=== PATIENT | female | born 2000 | race Caucasian/White ===

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

== ENCOUNTER → 2020-09-06 15:45 | Outpatient (CLI) | payer OTHER, SELFPAY ==
[2020-09-06 17:22] LABS: Vitamin D,25 Hydroxy 12.3 ng/mL
[2020-09-06 17:25] LABS: Hemoglobin A1c 4.8 % (3.8-5.6)
[2020-09-06 17:29] LABS: Estradiol 29.5 pg/mL; Follicle Stimulating Hormone 5.8 mIU/mL; Luteinizing Hormone 13.8 mIU/mL; Prolactin 7.2 ng/mL; T4 Free Direct 1.09 ng/dL (0.76-1.46); Thyroid Stim Hormone (TSH) 1.18 uIU/mL (0.358-3.74)
[2020-09-11 08:34] LABS: Testosterone Free 0.6 pg/mL (0.0-4.2)
[2020-09-15 09:52] LABS: 17-Hydroxyprogesterone 42 ng/dL (.)
== END ==
PROVIDERS: Visit Provider Student in an Organized Health Care Education/Training Program
DX: E28.2 Polycystic ovarian syndrome (principal)
CPT/HCPCS: 36415; 82306; 82627; 82670; 83001; 83002; 83036; 83498; 84146; 84402; 84439; 84443; 82626

== ENCOUNTER → 2022-02-16 | Outpatient (CLI) | payer OTHER, SELFPAY ==
[2022-02-16 17:56] LABS: Estradiol 36.2 pg/mL; Luteinizing Hormone 14.6 mIU/mL; Prolactin 6.9 ng/mL; Thyroid Stim Hormone (TSH) 1.44 uIU/mL (0.358-3.74)
== END | disposition home or self-care (01) ==
LOC: LAB 16:04
PROVIDERS: Visit Provider Student in an Organized Health Care Education/Training Program
DX: E28.2 Polycystic ovarian syndrome (principal)
CPT/HCPCS: 36415; 82670; 83001; 83002; 84146; 84443

== ENCOUNTER → 2022-05-10 | Outpatient (CLI) | payer OTHER, SELFPAY ==
[2022-05-10 14:18] LABS: Absolute Lymphocyte Count 3.09 X10^3/uL (0.83-4.51); Absolute Neutrophil Count 6.7 X10^3/uL (2.0-7.7); Basophil# 0.04 X10^3/uL; Basophil% 0.4 % (0-1); Eosinophil# 0.26 X10^3/uL; Eosinophils% 2.5 % (0-5); Hematocrit 39.9 % (37-47); Hemoglobin 13.4 g/dL (12.0-15.0); Lymphocyte # 3.09 X10^3/ul (0.83-4.51); Lymphocyte % 29.1 % (19-41); Mean Corp Hgb Conc 33.6 g/dL (32-36); Mean Corpuscular Volume 83.5 fL (81-99); Mean Platelet Vol. 9.4 fl (6.2-12.0); Monocyte# 0.45 X10^3/uL; Monocyte% 4.2 % (0-10); NRBC Flagged by Analyzer 0 % (0-5); Neutrophil # 6.69 X10^3/uL (2.7-7.7); Platelet Count 268 K/mm3 (150-450); RBC Distribution Width CV 12.1 % (11.6-14.6); Red Blood Count 4.78 M/mm3 (4.2-5.4); White Blood Count 10.6 K/mm3 (4.4-11.0)
[2022-05-10 15:15] LABS: HIV - WCH Non-Reactive (Nonreactive); Hepatitis B Surface Antigen Non-Reactive (Nonreactive); Hepatitis C Antibody Non-Reactive (Nonreactive); Rubella IgG Reactive (Nonreactive); Syphilis Antibodies Non-reactive
[2022-05-15 00:07] LABS: Chlamydia By Nucleic Acid AMP Negative (Negative); Gonococcus By Nucleic Acid AMP Negative (Negative)
[2022-05-15 16:07] LABS: V-Zoster IgG (Immunity) 154 index (Immune >165)
[2022-05-20 11:09] LABS: HPV APTIMA, High Risk Negative
== END | disposition home or self-care (01) ==
LOC: LABSPEC 14:07
PROVIDERS: Visit Provider Obstetrics & Gynecology
DX: Z34.81 Encounter for supervision of other normal pregnancy, first trimester (principal); Z11.3 Encounter for screening for infections with a predominantly sexual mode of transmission; Z12.4 Encounter for screening for malignant neoplasm of cervix
CPT/HCPCS: 85025; 86703; 86762; 86780; 86787; 86803; 87077; 87086; 87088; 87186; 87340; 87491; 87591; 87624; 88175; G0145

== ENCOUNTER → 2022-06-06 | Outpatient (CLI) | payer OTHER, SELFPAY ==
[2022-06-06 16:12] LABS: Glucose Challenge Gest 1H 50g 104 mg/dL (70-140)
== END | disposition home or self-care (01) ==
LOC: WOBLAB 15:13
PROVIDERS: Visit Provider Student in an Organized Health Care Education/Training Program
DX: Z34.81 Encounter for supervision of other normal pregnancy, first trimester (principal)
CPT/HCPCS: 36415; 82950

== ENCOUNTER 2022-06-26 08:08 | Emergency (ER) | payer OTHER, SELFPAY ==
[2022-06-26 08:09] VITALS: BP 137/94; PULSE 110; RESP 16; TEMP 36.7; O2SAT 98; BMI 42.9
[2022-06-26 10:20] VITALS: BP 125/79; PULSE 91; RESP 16; O2SAT 99
--- NOTE | 2022-06-26 10:20 | EDS_ITS ---
HPI HPI - Female History of Present Illness Chief Complaint: Vag Bld, Preg Informant: patient Pain Pain: Positive for Pelvic Pain Onset: Yesterday Context: Gradual Onset Quality: Positive for Cramping Location: - (throughout pelvis) Current Severity: Gone Maximum Severity: Mild Worsened by: - (nothing) Relieved by: - (nothing in particular) Bleeding Issue: Positive for Vaginal bleeding Onset: Today Context: Sudden Onset Timing: Intermittent (once) Current Severity: Spotting Maximum Severity: Similar to period Associated Symptoms Associated Symptoms: Negative for Dysuria, Frequency, Urgency or Hematuria P: 0 Ab: 0 Narrative Narrative: Patient is about 15 weeks , she had some mild cramping yesterday and then this morning she had a large amount of vaginal bleeding once that seem to then resolved. She does not have any more abdominal pain. No systemic symptom such as lightheadedness, fevers, vomiting. She has had an ultrasound showing an IUP in this earlier. Does not know her blood type. [facility] Medical History (Updated 06/26/22 @ 10:[address] Siva Alcala MD) PCOS (polycystic ovarian syndrome) Medical History no medical history Allergy/AdvReac Type Severity Reaction Status Date / Time No Known Allergies Allergy Verified 06/26/22 08:10 Surgical History no surgical history Social History Smoking Status: Never smoker ROS ROS ED Constitutional Constitutional ED: Denies chills or fever(s) Eyes Eyes: Denies change in vision or diplopia ENT ENT ED: Denies rhinorrhea or sore throat Cardiovascular Cardiovascular: Denies chest pain or palpitations Respiratory/Chest Respiratory/Chest: Denies cough or dyspnea Gastrointestinal Gastrointestinal: Reports abdominal pain; Denies diarrhea, nausea or vomiting Genitourinary Genitourinary ED: Reports as per HPI; Denies dysuria or hematuria Musculoskeletal Musculoskeletal: Denies back pain or neck pain Integumentary Denies abscess or rash Neurologic Neurologic: Denies headache(s), paresthesias or weakness Psychiatric Psychiatric: Denies anxiety or suicidal thoughts EXAM Physical Exam Const Vital Signs: 06/26/22 08:09 Temperature 98.1 F Temperature Source Temporal Pulse Rate 110 H Respiratory Rate 16 Blood Pressure 137/94 H Blood Pressure Mean 108 Pulse Ox 98 Oxygen Delivery Method Room Air Positive well nourished, well developed and obese Constitutional Narrative: Well-appearing General Appearance ED: well developed and NAD Nutritional Appearance: obese HEENT Reports moist mucous membranes normocephalic and atraumatic Eyes PERRL and EOMs intact bilaterally Neck full ROM and supple Resp normal respiratory effort and clear to auscultation bilaterally Cardio regular rate, regular rhythm and no murmurs GI non-tender and non-distended Auscultation: normoactive bowel sounds Palpation: soft Back/Spine no CVA tenderness General Back: other FROM Extremity normal to inspection General Extremety ED: Negative for edema, pulses abnormal or tenderness General Extremity: Negative for edema or pulses abnormal Neuro oriented x3, CN's II-XII intact bilaterally and no sensory deficits noted Sensorium / Orientation: awake and alert Motor Exam: strength 5/5 throughout Skin no rashes or lesions noted and no wounds MDM MDM MDM Narrative Medical decision making narrative: I performed an urgent bedside OB ultrasound. There is a single live intrauterine , the placenta appears to be anterior, and not a previa. heart tones are in the 120-130 range, this was somewhat limited because there is so much movement. I did a type and screen, the patient's blood type is a positive so RhoGAM is not indicated. She is doing well with normal vital signs for the stage of . I do not think any other testing is needed right now, she is reassured, but also we discussed the possibility that this ends in a miscarriage. She is to follow-up with her OB routinely, and we discussed reasons to return including heavy vaginal bleeding to become symptomatic. She is comfortable with that plan answered all questions at the bedside. Lab Data Attestation: I reviewed the patient's lab results. Labs: Laboratory Results - last 24 hr 06/26/22 08:45 Blood Type A POSITIVE Discharge Plan Triage Chief Complaint: Vag Bld, Preg ED Provider: Siva Alcala Dx/Rx/DC Orders Clinical Impression: Threatened in second trimester Instructions: ED Possible Miscarriage ... Primary Care Provider: Care Physician,No Primary Referrals: Hilary Salas DO [Med Staff - Active Staff] - 5-7 Days Care Physician,No Primary [Primary Care Provider] - Disposition Disposition: Home, Self Care
== END 2022-06-26 10:36 | disposition home or self-care (01) ==
PROVIDERS: Emergency Provider Emergency Medicine; Visit Provider Emergency Medicine
DX: O20.0 Threatened abortion (principal); O26.892 Other specified pregnancy related conditions, second trimester; O99.212 Obesity complicating pregnancy, second trimester; O26.852 Spotting complicating pregnancy, second trimester; R10.2 Pelvic and perineal pain; E66.9 Obesity, unspecified; Z3A.15 15 weeks gestation of pregnancy
CPT/HCPCS: 86900; 86901; 99283; A4216

== ENCOUNTER → 2022-07-26 | Outpatient (CLI) | payer OTHER, SELFPAY ==
--- NOTE | 2022-07-26 13:03 | US_ITS ---
EXAM: US SECOND OR THIRD TRIMESTER , TRANSABDOMINAL CLINICAL INDICATION: anatomy TECHNIQUE: Transabdominal obstetrical ultrasound of the maternal pelvis and a second or third trimester with image documentation. This report was created using [employer] report generation technology. COMPARISON: None. FINDINGS: FETUS: There is an intrauterine gestation. HEART RATE: heart rate is 1 45 bpm. PRESENTATION: The fetus in the cephalic position. PLACENTA: Placenta is fundal. No placenta previa. No abruption. AMNIOTIC FLUID: Unremarkable. ANATOMY: The lateral ventricle, cord, cerebellum, cisterna magna, face, diaphragm, stomach, three-vessel cord with cord insertion, kidneys, bladder, spine and extremities were all visualized. Four-chamber heart was not visualized. BIOMETRICS GESTATIONAL AGE: Gestational age 19 weeks 2 days. MALLORIE: MALLORIE 12/18/2022. EFW: Estimated weight is 341 g. BPD: Biparietal diameter is 4.7 cm age 20 weeks 2 days, 86th percentile. HC: Head circumference is 16.8 cm age 19 weeks 3 days, 49th percentile. AC: Abdominal circumference is 15.5 cm age 20 weeks 5 days, 87th percentile. FL: Femur length is 3.1 cm age 19 weeks 4 days, 54th percentile. MATERNAL: UTERUS: Unremarkable. No myometrial mass. CERVIX: Cervix measures 4.3 cm. ADNEXA: Unremarkable. No adnexal masses. FREE FLUID: The largest fluid pocket is 8.4 x 4.7 cm. US/OB Anatomy Scan IMPRESSION: Intrauterine gestation with an average ultrasound age of 19 weeks 5 days and ultrasound estimated due date of 12/15/2022. heart rate is 145 bpm. Electronically Signed: Charles Solano MD at 23:39 EST ,
== END | disposition home or self-care (01) ==
PROVIDERS: Visit Provider Student in an Organized Health Care Education/Training Program
DX: Z34.02 Encounter for supervision of normal first pregnancy, second trimester (principal); Z3A.20 20 weeks gestation of pregnancy
CPT/HCPCS: 76805; 76817

== ENCOUNTER → 2022-08-31 | Outpatient (CLI) | payer OTHER, SELFPAY ==
[2022-08-31 15:01] LABS: Hemoglobin 12.2 g/dL (12.0-15.0); Mean Corpuscular Hgb 28.7 pg (27.0-32.0); Mean Corpuscular Volume 87.1 fL (81-99); Mean Platelet Vol. 10.8 fl (6.2-12.0); Platelet Count 174 K/mm3 (150-450); RBC Distribution Width CV 13.4 % (11.6-14.6); Red Blood Count 4.25 M/mm3 (4.2-5.4); White Blood Count 10.4 K/mm3 (4.4-11.0)
[2022-08-31 15:37] LABS: Glucose Challenge Gest 1H 50g 127 mg/dL (70-140)
[2022-08-31 16:23] LABS: Syphilis Antibodies Non-reactive
== END | disposition home or self-care (01) ==
LOC: LABSPEC 14:12
PROVIDERS: Visit Provider Student in an Organized Health Care Education/Training Program
DX: Z34.83 Encounter for supervision of other normal pregnancy, third trimester (principal)
CPT/HCPCS: 36415; 82950; 85027; 86780

== ENCOUNTER → 2022-11-21 | Outpatient (CLI) | payer OTHER, SELFPAY | END | disposition home or self-care (01) | LOC: LABSPEC 16:03 | PROVIDERS: Visit Provider Student in an Organized Health Care Education/Training Program | DX: Z36.85 Encounter for antenatal screening for Streptococcus B (principal) | CPT/HCPCS: 87081 ==

== ENCOUNTER → 2022-11-27 | Outpatient (CLI) | payer OTHER, SELFPAY ==
[2022-11-27 10:27] LABS: Absolute Neutrophil Count 6.7 X10^3/uL (2.0-7.7); Basophil# 0.04 X10^3/uL; Basophil% 0.4 % (0-1); Eosinophil# 0.22 X10^3/uL; Eosinophils% 2.2 % (0-5); Hematocrit 35.9 % (37-47); Hemoglobin 11.3 g/dL (12.0-15.0); Lymphocyte % 23.9 % (19-41); Mean Corp Hgb Conc 31.5 g/dL (32-36); Mean Corpuscular Hgb 26.2 pg (27.0-32.0); Mean Corpuscular Volume 83.3 fL (81-99); Mean Platelet Vol. 11.4 fl (6.2-12.0); Monocyte# 0.51 X10^3/uL; Monocyte% 5.1 % (0-10); NRBC Flagged by Analyzer 0 % (0-5); Neutrophil # 6.68 X10^3/uL (2.7-7.7); Neutrophil % 66.6 % (47-70); Platelet Count 162 K/mm3 (150-450); RBC Distribution Width CV 14.5 % (11.6-14.6); RBC Distribution Width SD 43.5 fl (35.1-43.9); Red Blood Count 4.31 M/mm3 (4.2-5.4)
== END | disposition home or self-care (01) ==
LOC: WOBLAB 09:58
PROVIDERS: Visit Provider Student in an Organized Health Care Education/Training Program
DX: Z34.83 Encounter for supervision of other normal pregnancy, third trimester (principal)
CPT/HCPCS: 36415; 85025

== ENCOUNTER 2022-12-11 07:00 | Inpatient (IN) | payer OTHER, SELFPAY ==
[2022-12-11] VITALS (37 sets, daily range): BP systolic 117–164; BP diastolic 58–93; PULSE 91–200; TEMP 36.4–37; O2SAT 89–100; BMI 47.2
[2022-12-11] MEDS: Lactated Ringers 1,000 ML 50 ML IV (07:55)
[2022-12-11 08:09] LABS: Absolute Lymphocyte Count 2.45 X10^3/uL (0.83-4.51); Basophil# 0.04 X10^3/uL; Basophil% 0.3 % (0-1); Eosinophil# 0.22 X10^3/uL; Eosinophils% 1.9 % (0-5); Hematocrit 34.3 % (37-47); Lymphocyte # 2.45 X10^3/ul (0.83-4.51); Lymphocyte % 21.2 % (19-41); Mean Corp Hgb Conc 32.1 g/dL (32-36); Mean Corpuscular Hgb 25.9 pg (27.0-32.0); Mean Corpuscular Volume 80.7 fL (81-99); Mean Platelet Vol. 11.3 fl (6.2-12.0); Monocyte# 0.68 X10^3/uL; Monocyte% 5.9 % (0-10); NRBC Flagged by Analyzer 0 % (0-5); Neutrophil # 8.01 X10^3/uL (2.7-7.7); Neutrophil % 69.6 % (47-70); Platelet Count 147 K/mm3 (150-450); RBC Distribution Width CV 14.6 % (11.6-14.6); RBC Distribution Width SD 42.1 fl (35.1-43.9); Red Blood Count 4.25 M/mm3 (4.2-5.4); White Blood Count 11.5 K/mm3 (4.4-11.0)
[2022-12-11] MEDS: Oxytocin 15 Units/NS 250ml 15 UNITS/250 ML IV.SOLN 2 UNITS IV (08:14)
--- NOTE | 2022-12-11 08:32 | PCM.HP.BLA ---
History and Physical Date of Admission: 12/11/22 HPI: 22-year-old G1, P0 at 39/0 weeks, MALLORIE 12/18/2022 by LMP, admitted for induction of labor for class III obesity/elective. Denies regular contractions, leaking fluid, vaginal bleeding. Reports movement. Denies headache or vision changes, chest pain or shortness of breath, nausea or vomiting, diarrhea or constipation, fevers or chills. 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 Class III obesity 2. Polycystic ovarian syndrome Surgical history: Denies Family history: Denies history of blood clots or bleeding disorders, not otherwise noncontributory Allergies: No known drug allergies Social history: Reports former tobacco use. Denies alcohol or drug use Medications: vitamin, metformin Review of system: Negative otherwise stated above Physical exam: Blood pressure 117/72, temperature 97.6 ?F, heart rate 97 General: Patient is resting in bed, no acute distress HEENT: Normocephalic/atraumatic, PERRLA Cardiorespiratory: No increased effort Abdomen: Soft, nontender, gravid, obese Extremities: Minimal edema Neurologic: Cranial nerves II through XII grossly intact, no focal deficits Musculoskeletal: Uses all extremities equally Cervical exam: 3/70/-3 per RN heart rate: 140/mod maeve/+accel/no decel [place]: quiet Assessment/plan: 22-year-old G1, P0 at 39/0 weeks, MALLORIE 12/18/2022 by LMP, admitted for induction of labor for class III obesity/elective. complicated by: class III obesity, letrozole , polycystic ovarian syndrome. ?Admit for induction of labor. Pitocin started. Will AROM when appropriate. ? Class III obesity ?Plans epidural, with will get placed when desired Reviewed plan of care with patient, support person, and bedside RN.
[2022-12-11 08:40] LABS: Syphilis Antibodies Non-reactive
[2022-12-11] MEDS: Lactated Ringers 1,000 ML 200 ML IV ×3 (12:54→23:40)
[2022-12-11] MEDS: LACTATED RINGERS 500 ML 999 ML IV (12:57)
[2022-12-11] MEDS: fentaNYL-bupivacaine (epidural) 100 ML BAG EPIDURAL ×2 (13:55→22:50)
--- NOTE | 2022-12-11 14:58 | PN.OBGYN_ITS ---
Subjective Subjective Patient comfortable with epidural. Objective Data Objective Data Vital Signs: Vital Signs Temp Pulse BP Pulse Ox 97.9 F 105 H 121/62 H 100 12/11/22 11:23 12/11/22 14:43 12/11/22 14:28 12/11/22 14:43 Weight: 124.9 kg Body Mass Index (BMI) 47.2 Intake & Output: Intake and Output for Last 24 Hours 12/09/22 12/10/22 12/11/22 23:59 23:59 23:59 Intake Total 1461.51 / 1461.51 Balance 1461.51 / 1461.51 Lab / Micro Data Attestation: I reviewed the patient's lab results. Result Diagrams: 12/11/22 07:55 Labs: Laboratory Results - last 24 hr 12/11/22 07:55: WBC 11.5 H, RBC 4.25, Hgb 11.0 L, Hct 34.3 L, MCV 80.7 L, MCH 25.9 L, MCHC 32.1, RDW Std Deviation 42.1, RDW Coeff of [place] 14.6, Plt Count 147 L, MPV 11.3, Immature Gran % (Auto) 1.100 H, Neut % (Auto) 69.6, Lymph % (Auto) 21.2, [place] % (Auto) 5.9, Eos % (Auto) 1.9, Baso % (Auto) 0.3, Absolute Neuts (auto) 8.0 H, Absolute Lymphs (auto) 2.45, Nucleated RBC % 0 12/11/22 07:55: Blood Type A POSITIVE, Antibody Screen NEGATIVE 12/11/22 07:55: Syphilis Total Ab Non-reactive Physical Exam Const alert, oriented x3 and no apparent distress HEENT normocephalic Resp normal respiratory effort GI soft to palpation and non-tender Inspection: gravid Narrative: /-3, AROM large amount of clear fluid Extremity Extremity Narrative: minimal pedal edema NST FHR Rate Baby A Baseline: 135 Variability:: Moderate Accelerations:: 15 x 15 Decelerations:: None FHR Category:: Category I Uterine Activity:: q2-6 Assessment & Plan (1) Class 3 obesity: PLAN: G1, P0 at 39/0 weeks, continue induction of labor at term for obesity and elective. AROM clear fluid. Continue titrating Pitocin as tolerated. Patient doing well. Comfortable with epidural.
[2022-12-11] MEDS: Ondansetron 4 MG/2 ML Vial IV (21:23)
[2022-12-11] MEDS: Mag Hydrox/Al Hydrox/Simeth 30 ML UDC PO (22:59)
[2022-12-12] VITALS (31 sets, daily range): BP systolic 106–155; BP diastolic 58–83; PULSE 95–117; RESP 14–18; TEMP 35.9–37.1; O2SAT 94–98
[2022-12-12] MEDS: Oxytocin 15 Units/NS 250ml 15 UNITS/250 ML IV.SOLN 20 UNITS IV (00:18)
[2022-12-12] MEDS: Ondansetron 4 MG/2 ML Vial IV (03:43)
[2022-12-12] MEDS: fentaNYL-bupivacaine (epidural) 100 ML BAG EPIDURAL (04:14)
[2022-12-12] MEDS: Methylergonovine 0.2 MG/ML Ampul IM (04:52)
--- NOTE | 2022-12-12 05:04 | OP.PCM_ITS ---
Maternal Data Information Final MALLORIE: 12/18/22 Vaginal Delivery Operative Information Date of Procedure: 12/12/22 Pre-Operative Diagnosis: Syk intrauterine , class III obesity Post-Operative Diagnosis: Sky intrauterine , class III obesity Surgery / Procedure Performed: Spontaneous Vaginal Delivery Type of Anesthesia: Epidural Estimated Blood Loss: 300cc Findings Description of Procedure: Spontaneous vaginal delivery viable male. No nuchal cord. Beta mom. Cord clamped and cut. Spontaneous delivery of placenta. Right labial laceration repaired in the usual fashion, hemostatic. First-degree laceration repaired in the usual fashion, hemostatic. Baby assessed by bedside nurses and staffing coordinator, placed skin to skin. See their documentation for further details. Infant A Gender: Male (1 minute): 7 (5 minute): 9 Complication Complications: None
[2022-12-12] MEDS: Oxytocin 15 Units/NS 250ml 15 UNITS/250 ML IV.SOLN 83 UNITS IV (05:24)
[2022-12-12] MEDS: Ibuprofen 600 MG Tablet PO (07:30)
[2022-12-12] MEDS: metFORMIN (XR) 500 MG Tablet PO (07:30)
[2022-12-12] MEDS: Senna/Docusate Sodium 1 Tablet PO (08:24)
[2022-12-12] MEDS: Acetaminophen 500 MG Tablet 1000 MG PO ×2 (08:25→17:42)
[2022-12-12] MEDS: Benzocaine/Lanolin/Aloe Vera 1 SPRAY EACH TOPICAL (08:25)
[2022-12-12] MEDS: 0.9% Saline Lock 10 ML Syringe IV (08:26)
[2022-12-13 04:39] VITALS: BP 137/80; PULSE 99; RESP 18
--- NOTE | 2022-12-13 07:20 | PCM.PN.OB ---
Subjective Subjective day 1 status post . Patient is tired and sore, otherwise doing well. Formula feeding. Lochia minimal. Objective Data Objective Data Vital Signs: Vital Signs Temp Pulse Resp BP Pulse Ox O2 Del Method 98.1 F 99 18 137/80 H 97 Room Air 12/12/22 15:01 12/13/22 04:39 12/13/22 04:39 12/13/22 04:39 12/12/22 15:01 12/13/22 04:39 Oxygen Delivery Method Room Air Weight: 124.9 kg Body Mass Index (BMI) 47.2 Intake & Output: Intake and Output for Last 24 Hours 12/11/22 12/12/22 12/13/22 23:59 23:59 23:59 Intake Total 3508.41 / 3508.41 1626.33 / 1626.33 Output Total 600 / 600 1100 / 1100 Balance 2908.41 / 2908.41 526.33 / 526.33 Lab / Micro Data Attestation: I reviewed the patient's lab results. Result Diagrams: 12/11/22 07:55 Physical Exam Const alert, oriented x3 and no apparent distress HEENT normocephalic Head and Scalp: atraumatic Neck full ROM Resp normal respiratory effort Cardio regular rate GI normal to inspection, nondistended, normoactive bowel sounds GI Narrative: Uterus 2 cm below umbilicus Back/Spine normal ROM Extremity normal to inspection Extremity Narrative: Minimal pedal edema Neuro no focal motor deficits and no sensory deficits noted Psych mental status grossly normal and affect normal Assessment & Plan (1) Class 3 obesity: PLAN: day 1 status post . Patient doing well. Per patient there are some current concerns about jaundice and baby, will monitor throughout today. Likely home tomorrow. (2) Vaginal delivery:
--- NOTE | 2022-12-13 07:21 | DCINST_ITS ---
Discharge Instructions Diet Discharge Diet: No restrictions Activity Discharge Activity: Return to Normal Activity and May Shower May resume sexual activity in: 4-6 weeks Weight Bearing Status: Weight bearing as tolerated Lifting Restrictions: No greater than 25 pounds Dressing / Incision Call your doctor if you observe: Fever of 101 or Higher, Change in Color, Inability to urinate, Using more than 1 pad per hour, Shortness of breath, Dizziness, Swelling in the ankles, Chest pain and Calf discomfort Follow Up Care Please Follow Up With: Hilary Salas DO When: 6-week visit Test Results: Test results from this visit will be discussed in further detail at your follow- up appointment, if applicable. Discharge Plan Admission Admit Date/Time: 12/11/22 07:00 Primary Reason for Your Visit: Vaginal delivery Attending Provider: Hilary Salas Primary Care Provider: Care Physician,Josefa Primary Discharge Orders/Prescriptions Prescriptions: No Action metformin 500 mg tablet extended release 24 hr 500 mg PO DAILY Referrals / Follow Up: Care Physician,No Primary [Primary Care Provider] - Disposition Disposition (needs filled in before D/C Order can be placed): Home, Self Care
[2022-12-13] MEDS: metFORMIN (XR) 500 MG Tablet PO (08:24)
[2022-12-13 08:33] VITALS: BP 146/80; PULSE 94; RESP 16; TEMP 36.4
[2022-12-13 10:50] VITALS: BP 140/86; PULSE 103; RESP 16; O2SAT 97
[2022-12-13] MEDS: Acetaminophen 500 MG Tablet 1000 MG PO (10:59)
--- NOTE | 2022-12-13 13:21 | CASEMGMT ---
Social Work Assessment Labor and Delivery Unit Patient Address:[address] [place] [address] Phone number: [phone] Date of Referral:12/12/22 Time of Referral: 0900 Referred By: Hilary Salas Date of Intervention: 12/13/22 Time of Intervention: 1250 Reason for Referral: Mental health History obtained from: medical records and mother of baby (KELLY), Gaby and father of baby (FOB) Jacob. Household composition: Residing at home is KELLY, MARLA and new baby Patient's parent/guardian status: KELLY reports that parents have been together for almost 6 years, in two weeks. FOB is involved, baby is first baby for both parents. Medical History: This is first for KELLY, who came in for induction and delivered baby via vaginal delivery. KELLY received routine care with Earnestine. Baby, Mayela, was born on 12/12/22 weighing 4253 grams and apgars were 7 and 8. Baby has bruising to face from precipitous delivery and skin tag to neck that has been referred to ENT for evaluation. Educational Status: Both parents graduated from high school. No advanced education. KELLY reports that she was on an IEP until her Freshman year in High School, which gave her additional time for assignments and tests/ quizzes. 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. KELLY is off of work until January. AMRLA is employed as a risk management consultant. He is off of work until after December 25. KELLY has private insurance provided through her employer, [employer]. Supplies: KELLY reports that she has obtained all necessary baby items including crib, basinett, clothes, diapers and wipes. KELLY has chosen to feed baby with formula. Sw encouraged MOB to look into services through [facility]. Childcare/Caregiver(s): While KELLY is on maternity leave she will be the primary caregiver to baby, FOB will also assist. When both parents are at work baby will be watched by family members. Transportation: Parents report no barriers to transportation. Programs/Agencies Involved: KELLY reports that she is not connected to any community agencies/ resources. Sw provided KELLY with informationa regading [facility] and explained benefits of getting connected to resource. MOB agreed to look over brochure and let sw know if she is receptive to linkage. Children Services/Legal Issues: No history, no current concerns to warrant involvement. Behavioral Health Issues: Mental Health History: MOB disclosed that she has history of anxiety and depression. MOB states that her initial symptoms started when her parents were getting a divorce. MOB denies medications or involvement with mental health supports. [place] Depression Screen was completed. MOB scored 9. Sw provided MOB with list of counseling agencies in [facility]. Sw explained benefits of getting connected to menteal health supports post to help assist with any baby blues or post depression symptoms that MOB may be experiencing. MOB stated she is going to look over list and will let sw know if she would like assistance with getting appointment scheduled prior to her discharge. MOB denies SI or history of SI. Substance Use History: MOB denies, urine screen at delivery was negative. MOB states that when she learned that she was she stopped vaping. Sw educated MOB on not vaping in the home and if she vapes change clothes prior to holding baby to eliminate and second hand smoke. MOB expressed understanding and agreement. Family History: MOB denies family history of substance use. Drug Screens: Drug screen negative at time of delivery. Family/Social Stressors:Parents deny any stressors and concerns at this time. Support Systems:MOB reports that her family is extremely supportive and involved. MOB states that FOB family is not very supportive but did not want to elaborate at this time. Depression/Shaken Baby/Safe Sleeping: Sw disucssed signs and symptoms of baby blues and post depression with MOB. MOB expressed understanding and is considering getting connected to community mental health supports. Sw educated MOB and MARLA on shaken baby- both parents expressed understanding. Parents were familiar with ABC's of safe sleep and recognized importance of only using fitted sheet in safe sleep space and what baby is wearing. ASSESSMENT: Parents were engaged during assessment. Parents answered questions and elaborated with answers. Parents were both engaged and interactive with baby. MOB would benefit from linkage to community mental health supports to help her during post . PLAN: Sw to follow up with parents tomorrow prior to discharge to discuss willingness to get connected to [facility] and/ or counseling services to promote healthy mental post health. Zach Flores, VEHICLE UPHOLSTERER, BUILDING MAINTENANCE CUSTODIAN
[2022-12-13 13:47] VITALS: BP 125/85; PULSE 99; RESP 16; TEMP 36.6; O2SAT 98
[2022-12-13 20:50] VITALS: BP 124/85; PULSE 105; RESP 16; TEMP 37; O2SAT 98
--- NOTE | 2022-12-13 23:29 | NURSING ---
Report given to Mary Beth VILLARREAL, taking over care at this time.
[2022-12-14 01:00] VITALS: BP 122/79; PULSE 82; RESP 16; TEMP 36.6; O2SAT 98
--- NOTE | 2022-12-14 07:26 | PCM.DC.BLA ---
Discharge Summary Date of Admission: 12/11/22 Date of Discharge: 12/14/22 Summary: Patient arrived on 12/11/2022 for induction of labor at term. Subsequently delivered vaginally on 12/12/2022. Baby with jaundice. Otherwise routine recovery and discharged home on 12/14/2022 Meaningful Use Info Meaningful Use Diagnoses (Choose all that apply): None applicable Discharge Plan Admission Admit Date/Time: 12/11/22 07:00 Primary Reason for Your Visit: Induction of labor Attending Provider: Hilary Salas Primary Care Provider: Care Physician,Josefa Primary Instructions Additional Instructions / Restrictions: Regular diet. Weightbearing as tolerated. No intercourse for 6 to 8 weeks. Call if fevers, chills, chest pain, shortness of breath. Follow-up 4 to 6 weeks Discharge Orders/Prescriptions Prescriptions: No Action metformin 500 mg tablet extended release 24 hr 500 mg PO DAILY Referrals / Follow Up: Care Physician,No Primary [Primary Care Provider] - Disposition Disposition (needs filled in before D/C Order can be placed): Home, Self Care
--- NOTE | 2022-12-14 07:27 | PCM.PN.OB ---
Subjective Subjective No overnight complaints Objective Data Objective Data Vital Signs: Vital Signs Temp Pulse Resp BP Pulse Ox O2 Del Method 97.9 F 82 16 122/79 H 98 Room Air 12/14/22 01:00 12/14/22 01:00 12/14/22 01:00 12/14/22 01:00 12/14/22 01:00 12/14/22 01:00 Oxygen Delivery Method Room Air Weight: 275 lb 5.718 oz Body Mass Index (BMI) 47.2 Intake & Output: Intake and Output for Last 24 Hours 12/12/22 12/13/22 12/14/22 23:59 23:59 23:59 Intake Total 1626.33 / 1626.33 Output Total 1100 / 1100 Balance 526.33 / 526.33 Lab / Micro Data Result Diagrams: 12/11/22 07:55 Physical Exam Const alert, oriented x3, no apparent distress, average body habitus, healthy appearing and well nourished HEENT normocephalic and moist oral mucous membranes Eyes PERRL Neck full ROM Resp normal respiratory effort, no retractions and no use of accessory muscles GI GI Narrative: Soft, nontender, uterus firm and below umbilicus Extremity normal to inspection and full ROM Neuro moves all extremities and no focal motor deficits Psych mental status grossly normal, affect normal, speech normal and activity/motor behavior normal Assessment & Plan (1) Vaginal delivery: PLAN: day 2. Formula feeding. Pain well controlled. Okay to discharge home today if okay with chief specialist leed
[2022-12-14 08:00] VITALS: BP 124/68; PULSE 95; RESP 18; TEMP 36.8; O2SAT 97
[2022-12-14] MEDS: Hydrocortisone 2.5% Crm 1 APPLIC TOPICAL (08:48)
--- NOTE | 2022-12-14 08:52 | CASEMGMT ---
Social Work Labor and Delivery Unit ? Summary:?Mother of baby (MOB) Gaby and baby medically ready for discharge today. Sw met with MOB and father of baby (FOB) at bedside. Sw following up with MOB regarding resources that were provided to her yesterday including counseling agencies and [facility]. MOB states that she would like to get home and get settled before getting scheduled with counseing services. Sw expressed understanding and encouraged MOB to still follow through with doing so when she is ready. MOB stated that [facility] services are connected to her employer ([employer] ) and she plans on following up with them to get baby connected. Sw again encouraged MOB to follow through in doing so and reminded MOB of benefit of [facility] involvement. Parents state that they are eager to be discharged and looking forward to taking baby home today. Sw encouraged parents to reach out to sw for any last minute questions or concerns, parents expressed understanding. ? Assessment:??MOB and baby being discharged today. MOB was provided information regarding mental health services that she would benefit from. MOB also encouraged to get baby connected to [facility]. ? Intervention:?Tali provided support, resources and encouragement. ? Plan:??No further sw needs identified at this time. Zach Flores, LINING PRINTER, SWEATBAND MAKER
== END 2022-12-14 10:45 | disposition home or self-care (01) | DRG 807 ==
PROVIDERS: Admitting Provider Student in an Organized Health Care Education/Training Program; Referring Provider Student in an Organized Health Care Education/Training Program; Visit Provider Student in an Organized Health Care Education/Training Program
DX: O99.214 Obesity complicating childbirth (principal); Z37.0 Single live birth; E28.2 Polycystic ovarian syndrome; E66.01 Morbid (severe) obesity due to excess calories; O70.0 First degree perineal laceration during delivery; Z3A.39 39 weeks gestation of pregnancy; O99.284 Endocrine, nutritional and metabolic diseases complicating childbirth
CPT/HCPCS: 59025; 59050; 85025; 86780; 86850; 86900; 86901; 99221; J7120; A4216; G0378; J2405

== ENCOUNTER 2023-01-19 14:30 | Emergency (ER) | payer OTHER, SELFPAY ==
[2023-01-19 14:30] VITALS: BP 146/90; PULSE 94; RESP 16; TEMP 36.6; O2SAT 100; BMI 43.2
--- NOTE | 2023-01-19 14:43 | ED.VIS.FEGU ---
HPI HPI - Female History of Present Illness Chief Complaint: Vag Bleeding Narrative Narrative: Patient is a 22-year-old female who is presenting to the ER with vaginal bleeding that started , and has worsened yesterday and today. Patient delivered on December 12. Patient is a . Patient started having some spotting on , patient was soaking a pad once every 6 hours yesterday, this morning she was soaking a pad once every 3 hours, and then this evening has been soaking a pad every hour. Patient is not lightheaded, dizzy, not short of breath. Patient did call the on-call [employer] physician Dr. Salas. Dr. Hilary Salas is to be delivered patient on December 12 with no complications. Patient did not hear from Dr. Salas, so she came to the ER for evaluation. When patient was sitting in the ER bed 9, Dr. Salas did call patient back and had a 15-minute discussion on this is normal bleeding after . Continue increased fluids, and follow-up with scheduled appointment on Saturday with his Hilary Salas the OB doc who delivered her. Patient has no abdominal pain, nausea or vomiting. Patient has no other acute complaints. at bedside. Patient says that if she had talked to Dr. Salas prior to arriving to the ER, she would not have checked into the ER. Patient says that they paged him several times with no return phone call so they decided come to the ER to be safe. [facility] Medical History (Updated 01/19/23 @ 16:[address] Ángel Bansal DO) PCOS (polycystic ovarian syndrome) Vaginal delivery Home Medications metformin 500 mg tablet,extended release 24 hr 500 mg PO DAILY PCOS 12/11/22 [History Last Taken 12/11/22 06:00] Allergy/AdvReac Type Severity Reaction Status Date / Time No Known Allergies Allergy Verified 01/19/23 14:33 Social History Smoking Status: Former smoker ROS ROS ED ROS Narrative REVIEW OF SYSTEMS: Unless otherwise stated in this report the patient's positive and negative responses for review of systems for constitutional, eyes, ENT, cardiovascular, respiratory, gastrointestinal, neurological, , musculoskeletal, and integument systems and related systems to the presenting problem are either stated in the history of present illness or were not pertinent or were negative for the symptoms and/or complaints related to the presenting medical problem. EXAM Physical Exam Narrative Exam Narrative: Vital signs reviewed and patient is not hypoxic. General: The patient appears well and in no apparent distress. Patient is resting comfortably on cart. Not toxic, lethargic, or listless. Skin: Warm, dry, no pallor noted. There is no rash noted. Head: Normocephalic, atraumatic Eye: Normal conjunctiva, no drainage, EOMI. PERRL. Patient is not pale. Ears, Nose, Mouth, and Throat: oral mucosa is moist. Nares patent. Mouth without vesicles. Cardiovascular: Regular Rate and Rhythm, no murmurs, gallops, or rubs Respiratory: Patient is in no distress, no accessory muscle use, lungs are clear to auscultation, no wheezing, rales or rhonchi Back: non-tender, no CVA tenderness bilaterally to percussion. NO CTLS midline or paraspinal tenderness to palpation. GI: Soft, no tenderness to palpation, no masses appreciated. No rebound, guarding, or rigidity noted. No suprapubic tenderness to palpation, no bilateral inguinal tenderness to palpation. Patient has no significant active bleeding at this time vaginally. Musculoskeletal: The patient has full range of motion of all extremities and joints with no difficulty. Patient has no motor, no sensory deficits. Neurological: A&O x4, normal speech, no focal neurological deficits. Psychiatric: Cooperative Const Vital Signs: 01/19/23 14:30 01/19/23 14:52 01/19/23 16:53 Temperature 98 F Temperature Source Temporal Pulse Rate 94 87 Pulse Rate [Lying] 84 Pulse Rate [Sitting (for 1 minute prior to obtaining)] 103 H Pulse Rate [Standing (for 1 minute prior to obtaining)] 95 Respiratory Rate 16 16 Blood Pressure 146/90 H 132/89 H Blood Pressure [Lying] 124/82 H Blood Pressure [Sitting (for 1 minute prior to obtaining)] 123/83 H Blood Pressure [Standing (for 1 minute prior to obtaining)] 122/86 H Blood Pressure Mean 108 Blood Pressure Mean [Lying] 96 Blood Pressure Mean [Sitting (for 1 minute prior to obtaining)] 96 Blood Pressure Mean [Standing (for 1 minute prior to obtaining)] 98 Pulse Ox 100 99 Oxygen Delivery Method Room Air MDM MDM MDM Narrative Medical decision making narrative: I spoke to Dr. Salas on the phone. He told me that he had a 15-minute conversation with the patient to be evaluated in room 9. Patient was given 1 L of IV fluid. Patient lab work shows no acute findings. Patient will continue to increase fluids at home. Patient's H&H showed no acute findings. Patient will follow-up on Saturday with appoint with Dr. Hilary Salas as scheduled. Lab Data Attestation: I reviewed the patient's lab results. Labs: Laboratory Results - last 24 hr 01/19/23 14:51 WBC 8.4 RBC 4.66 Hgb 11.7 L Hct 37.1 MCV 79.6 L MCH 25.1 L MCHC 31.5 L RDW Std Deviation 41.6 RDW Coeff of Spencer 14.5 Plt Count 230 MPV 9.8 Immature Gran % (Auto) 0.500 Neut % (Auto) 55.1 Lymph % (Auto) 37.7 [place] % (Auto) 4.1 Eos % (Auto) 2.2 Baso % (Auto) 0.4 Absolute Neuts (auto) 4.6 Absolute Lymphs (auto) 3.15 Nucleated RBC % 0 Discharge Plan Triage Chief Complaint: Vag Bleeding ED Provider: Ángel Bansal Dx/Rx/DC Orders Clinical Impression: Vaginal bleeding Instructions: ED Dysfunctional Uterine Bleeding Prescriptions: No Action metformin 500 mg tablet extended release 24 hr 500 mg PO DAILY Primary Care Provider: Care Physician,No Primary Referrals: Hilary Salas DO [Med Staff - Active Staff] - Care Physician,No Primary [Primary Care Provider] - Activity Restrictions/Additional Instructions: Increase fluids, follow up with your OB at your apt this week. Disposition Disposition: Home, Self Care Discharge Date/Time: 01/19/23 16:57
[2023-01-19 14:52] VITALS: BP 122/86; BP 123/83; BP 124/82; PULSE 103; PULSE 84; PULSE 95
[2023-01-19] MEDS: 0.9% Normal Saline 1,000 ML 999 ML IV (14:56)
[2023-01-19 14:59] LABS: Absolute Lymphocyte Count 3.15 X10^3/uL (0.83-4.51); Absolute Neutrophil Count 4.6 X10^3/uL (2.0-7.7); Basophil# 0.03 X10^3/uL; Basophil% 0.4 % (0-1); Eosinophil# 0.18 X10^3/uL; Eosinophils% 2.2 % (0-5); Hematocrit 37.1 % (37-47); Hemoglobin 11.7 g/dL (12.0-15.0); Lymphocyte # 3.15 X10^3/ul (0.83-4.51); Lymphocyte % 37.7 % (19-41); Mean Corp Hgb Conc 31.5 g/dL (32-36); Mean Corpuscular Hgb 25.1 pg (27.0-32.0); Mean Corpuscular Volume 79.6 fL (81-99); Mean Platelet Vol. 9.8 fl (6.2-12.0); Monocyte# 0.34 X10^3/uL; Monocyte% 4.1 % (0-10); NRBC Flagged by Analyzer 0 % (0-5); Neutrophil # 4.61 X10^3/uL (2.7-7.7); Neutrophil % 55.1 % (47-70); Platelet Count 230 K/mm3 (150-450); RBC Distribution Width CV 14.5 % (11.6-14.6); RBC Distribution Width SD 41.6 fl (35.1-43.9); Red Blood Count 4.66 M/mm3 (4.2-5.4); White Blood Count 8.4 K/mm3 (4.4-11.0)
[2023-01-19 16:53] VITALS: BP 132/89; PULSE 87; RESP 16; O2SAT 99
== END 2023-01-19 16:57 | disposition home or self-care (01) ==
PROVIDERS: Emergency Provider Emergency Medicine; Visit Provider Emergency Medicine
DX: N93.9 Abnormal uterine and vaginal bleeding, unspecified (principal); Z87.891 Personal history of nicotine dependence
CPT/HCPCS: 85025; 96360; 96361; 99283; J7030; A4216

== ENCOUNTER → 2023-06-28 | Outpatient (CLI) | payer OTHER, SELFPAY ==
--- OUTSIDE RECORDS SUMMARY | 2023-06-28 16:41 | XMS RPT_ITS | CCD ---
Author Name Unknown Address [address] [place] [id number] Organization [facility] Care Team Providers Care Coil Shaper Name Role Phone Clifton, Sheree D Unavailable Unavailable Clifton, Sheree D Unavailable Unavailable Papito Anna Unavailable Unavailable Jeff, Danita Unavailable Unavailable JeffSantosin Unavailable Unavailable Yvan Annaen L Unavailable Unavailable Rings, Sony Unavailable Unavailable Rings, Sony Unavailable Unavailable [facility], [facility] Unavailable Unavailable NO, PHYSICIAN Primary Care Unavailable SERGE ELAINE Attending Unavailable Unavailable Primary Care Provider Unavailabl e Problems Problem Classification Problem Date Documented Da te Episodic/Chronic Lymphadenitis (2 sources) Nonspecific lymphadenitis, unspecified; Translations: [Nonspecific lymphadenitis, unspecified] Onset: 02-12-2023 Episodic Other upper respiratory infections (2 sources) Acute pharyngitis, unspecified; Translations: [Acute pharyngitis, unspecified] Onset: 02-12-2023 Episodic Superficial injury; contusion (1 source) Abrasion of cheek; Translations: [Abrasion of other part of head, initial encounter] 04-02-2023 Episodic Results Test Name Value Interpretation Reference Range Facil ity Vital Signs Date Time Vital Sign Value Performing Clinician Facility 04-02-2023 13:06-0400 Body height 162.6 cm Ras Lowtrevor NATURAL RESOURCE OFFICER-AGRONOMY PROFESSOR Work Phone: [facility] 04-02-2023 13:06-0400 Body mass index (BMI) [Ratio] 43.77 kg/m2 Ras Urrutiarufus [employer] Work Phone: [facility] 04-02-2023 13:06-0400 Body temperature 97.39 [degF] Ras Kelseytrevor [employer] Work Phone: [facility] 04-02-2023 13:06-0400 Body weight 115.67 kg Ras Orantes NATURAL RESOURCE OFFICER-AGRONOMY PROFESSOR Work Phone: [facility] 04-02-2023 13:06-0400 Diastolic blood pressure 88 mm[Hg] Rsa Orantes NATURAL RESOURCE OFFICER-AGRONOMY PROFESSOR Work Phone: [facility] 04-02-2023 13:06-0400 Heart rate 84 /min Ras Orantes NATURAL RESOURCE OFFICER-AGRONOMY PROFESSOR Work Phone: [facility] 04-02-2023 13:06-0400 Respiratory rate 16 /min Ras Renanrufus NATURAL RESOURCE OFFICER-AGRONOMY PROFESSOR Work Phone: [facility] 04-02-2023 13:06-0400 SaO2% (BldA) [Mass fraction] 100 % Ras Renanrufus NATURAL RESOURCE OFFICER-AGRONOMY PROFESSOR Work Phone: [facility] 04-02-2023 13:06-0400 Systolic blood pressure 135 mm[Hg] Ras Orantes NATURAL RESOURCE OFFICER-AGRONOMY PROFESSOR Work Phone: [facility] Encounters Encounter Date Encounter Type Care Provider Facility Start: 04-02-2023 End: 04-02-2023 Office outpatient visit 15 minutes Ras Orantes NATURAL RESOURCE OFFICER-AGRONOMY PROFESSOR Work Phone: [facility] Plan of Treatment Date Care Activity Detail Author Start: 10-15-2049 Zoster Vaccines (1 of 2) Zoste r Vaccines (1 of 2) [facility] Start: 04-02-2033 DTaP/Tdap/Td Vaccine s (8 - Td or Tdap) DTaP/Tdap/Td Vaccines (8 - Td or Tdap) [facility] Start: 02-22-2023 Influenza vaccination Influenza Vacc ine (#1) [facility] Start: 10-15-2020 Screening for malign ant neoplasm of cervix [facility] Start: 10-15-2017 Hepatitis C screening Hepatitis C [facility] Start: 10-15-2010 HPV Vaccines (1 - 2- dose series) HPV Vaccines (1 - 2-dose series) [facility] Start: 04-16-2000 COVID-19 Vaccine (#1) COVID-19 Vacci ne (#1) [facility] Start: 1999 HIV screening HIV Screening [facility] Start: 1999 Lipid panel Lipid Panel [facility] Start: 1999 Yearly Adult Physical Yearly Adult P hysical [facility] Immunizations Immunization Date Immunization Notes Care Provider Fa cility 04-02-2023 tetanus toxoid, redu susan diphtheria toxoid, and acellular pertussis vaccine, adsorbed Ras RenanJooobz!trevor NATURAL RESOURCE OFFICER[employer] Work Phone: [facility] Work Phone: 04-21-2004 influenza virus vaccine, unspecified formulation Ras UrrutiaJooobz!trevor NATURAL RESOURCE OFFICER-AGRONOMY PROFESSOR Work Phone: [facility] Work Phone: Payers Date Payer Category Payer Unknown [id number] 2017 Unknown 1999 Unknown [id number] [id number] 1999 Unknown [id number] 1999 Unknown [id number] [id number] 1972 Unknown [id number] [id number] 1972 Unknown [id number] [id number] Unknown [id number] Social History Date Type Detail Facility Start: 04-02-2023 Tobacco smoking stat us RIIS Never smoked tobacco [facility] Work Phone: Start: 04-02-2023 Tobacco use and exposure Smokeless tobacco non-user [facility] Work Phone: Start: 04-02-2023 Alcohol intake Lifetime non-d alma (finding) [facility] Work Phone: Start: 1999 Sex Assigned At Not on file [facility] Work Phone: Gender identity Not on file [facility] Work Phone: Start: 03-23-2023 End: 04-02-2023 Exposure to SARS-CoV-2 (event) Yes [facility] History of Present illness Narrative 04-02-2023 CLAY Morales - 04/02/2023 12:55 PM EDT Note Date & Type Note Facility 04-02-2023 History of Present illness Narrative 22 y.o. female presents for evaluation of abrasion to left cheek that occurred just prior to arrival when patient was scratched by a student at work. States she is not up to date on tetanus. Denies any other symptoms. Vitals: 04/02/23 1306 BP: 135/88 Pulse: 84 Resp: 16 Temp: 36.3 C (97.4 F) SpO2: 100% No Known Allergies Medication Documentation Review Audit Reviewed by CLAY Morales (Nurse Practitioner) on 04/02/23 at 1315 Medication Order Taking? Sig Documenting Provider Last Dose Status No Medications to Display History reviewed. No pertinent past medical history. History reviewed. No pertinent surgical history. ROS See HPI Physical Exam Vitals and nursing note reviewed. Constitutional: Appearance: Normal appearance. Skin: General: Skin is warm and dry. Capillary Refill: Capillary refill takes less than 2 seconds. Findings: Erythema (left cheek abrasion) present. Neurological: General: No focal deficit present. Mental Status: She is alert and oriented to person, place, and time. Psychiatric: Mood and Affect: Mood normal. Behavior: Behavior normal. Assessment/Plan/MDM Gaby was seen today for abrasion. Diagnoses and all orders for this visit: Abrasion of cheek, initial encounter (Primary) Other orders - diphth,pertus(acell),tetanus (BoostRIX) 2.5-8-5 Lf-mcg-Lf/0.5mL vaccine - [employer] Override Pull Encouraged patient to wash abrasion with antibacterial soap and water. Patient's clinical presentation is otherwise unremarkable at this time. Patient is discharged with instructions to follow-up with primary care or seek emergency medical attention for worsening symptoms or any new concerns. Ras Orantes CNP [facility] [phone] documented in this encounter [facility] Work Phone: Evaluation note Note Date & Type Note Facility documented in this encounter [facility] Work Phone: Summary Purpose Family History No Family History Records FoundNo Family History Records FoundNo Family History Records FoundNo Family History Records Found Advance Directives No Advanced Directives Records FoundNo Advanced Directives Records FoundNo Advanced Directives Records FoundNo Advanced Directives Records Found Additional Source Comments INFORMATION SOURCE (unrecogn ized section and content) DATE CREATED AUTHOR AUTHOR'S ORGANIZ ATION 09/16/2018 [facility] DATE CREATED AUTHOR AUTHOR'S ORGANIZ ATION 04/29/2020 [facility] DATE CREATED AUTHOR AUTHOR'S ORGANIZ ATION 03/06/2023 [facility] Reason for Visit (unrecogniz ed section and content) FOR RECORDS PERTAINING TO PATIENTS WHO ARE OR HAVE BEEN ENROLLED IN A CHEMICAL DEPENDENCY/SUBSTANCEABUSE PROGRAM, SOME INFORMATION MAY BE OMITTED. This clinical summary was aggregated from multiple sources. Caution should be exercised in using it in the provision of clinical care. This summary normalizes information from multiple sources, and as a consequence, information in this document may materially change the coding, format and clinical context of patient data. In addition, data may be omitted in some cases. CLINICAL DECISIONS SHOULD BE BASED ON THE PRIMARY CLINICAL RECORDS. [facility] [employer] [facility]. provides no warranty or guarantee of the accuracy or completeness of information in this document.
[2023-06-28 17:12] LABS: Absolute Lymphocyte Count 2.58 X10^3/uL (0.83-4.51); Absolute Neutrophil Count 5.7 X10^3/uL (2.0-7.7); Basophil# 0.04 X10^3/uL; Basophil% 0.4 % (0-1); Eosinophil# 0.13 X10^3/uL; Eosinophils% 1.5 % (0-5); Hematocrit 36.7 % (37-47); Hemoglobin 11.8 g/dL (12.0-15.0); Lymphocyte # 2.58 X10^3/ul (0.83-4.51); Lymphocyte % 28.9 % (19-41); Mean Corp Hgb Conc 32.2 g/dL (32-36); Mean Corpuscular Hgb 24.9 pg (27.0-32.0); Mean Corpuscular Volume 77.6 fL (81-99); Mean Platelet Vol. 9.9 fl (6.2-12.0); Monocyte# 0.45 X10^3/uL; NRBC Flagged by Analyzer 0 % (0-5); Neutrophil % 63.8 % (47-70); Platelet Count 241 K/mm3 (150-450); RBC Distribution Width CV 14.8 % (11.6-14.6); RBC Distribution Width SD 41.4 fl (35.1-43.9); Red Blood Count 4.73 M/mm3 (4.2-5.4); White Blood Count 8.9 K/mm3 (4.4-11.0)
[2023-06-28 17:28] LABS: Hemoglobin A1c 4.8 % (3.8-5.6)
[2023-06-28 18:24] LABS: HIV - WCH Non-Reactive (Nonreactive); Hepatitis B Surface Antigen Non-Reactive (Nonreactive); Hepatitis C Antibody Non-Reactive (Nonreactive); Rubella IgG Reactive (Nonreactive); Syphilis Antibodies Non-reactive
[2023-07-01 22:07] LABS: Chlamydia By Nucleic Acid AMP Negative (Negative); Gonococcus By Nucleic Acid AMP Negative (Negative)
== END | disposition home or self-care (01) ==
PROVIDERS: Referring Provider Advanced Practice Midwife; Visit Provider Advanced Practice Midwife
DX: Z34.90 Encounter for supervision of normal pregnancy, unspecified, unspecified trimester (principal); Z3A.00 Weeks of gestation of pregnancy not specified
CPT/HCPCS: 36415; 83036; 85025; 86703; 86762; 86780; 86803; 86850; 86900; 86901; 87086; 87088; 87340; 87491; 87591

== ENCOUNTER → 2023-09-24 | Outpatient (CLI) | payer OTHER, SELFPAY ==
[2023-09-24 11:07] LABS: Absolute Lymphocyte Count 2.45 X10^3/uL (0.83-4.51); Absolute Neutrophil Count 6.1 X10^3/uL (2.0-7.7); Basophil# 0.06 X10^3/uL; Basophil% 0.6 % (0-1); Eosinophil# 0.24 X10^3/uL; Eosinophils% 2.5 % (0-5); Hematocrit 34.8 % (37-47); Hemoglobin 11.2 g/dL (12.0-15.0); Lymphocyte # 2.45 X10^3/ul (0.83-4.51); Mean Corp Hgb Conc 32.2 g/dL (32-36); Mean Corpuscular Hgb 25.7 pg (27.0-32.0); Mean Corpuscular Volume 79.8 fL (81-99); Mean Platelet Vol. 10.5 fl (6.2-12.0); Monocyte# 0.45 X10^3/uL; Monocyte% 4.8 % (0-10); NRBC Flagged by Analyzer 0 % (0-5); Neutrophil % 64.6 % (47-70); Platelet Count 161 K/mm3 (150-450); RBC Distribution Width CV 15.2 % (11.6-14.6); RBC Distribution Width SD 43.8 fl (35.1-43.9); Red Blood Count 4.36 M/mm3 (4.2-5.4); White Blood Count 9.4 K/mm3 (4.4-11.0)
[2023-09-24 11:29] LABS: ALB/GLOB Ratio 0.7 RATIO (0.9-2.4); AST(SGOT) 13 U/L (15-37); Alanine Aminotransfer ALT/SGPT 14 U/L (13-56); Albumin, Serum 2.8 g/dL (3.2-5.0); Alkaline Phosphatase 50 U/L (45-117); Anion Gap 7 (5-15); BUN 5 mg/dL (7-18); BUN/Creat Ratio 8.8 RATIO (10-20); Calcium,Total 9.2 mg/dL (8.5-10.1); Chloride 109 mmol/L (98-107); Creatinine, Serum 0.57 mg/dL (0.55-1.02); EST Glomerular Filtration Rate 139 mL/min (>60); Est Glom Filt Rate - Afr Amer 168 mL/min (>60); Globulin 3.8 g/dL (2.2-4.2); Glucose 103 mg/dL (74-106); Potassium 3.7 mmol/L (3.5-5.1); Protein, Total 6.6 g/dL (6.4-8.2); Sodium Level 139 mmol/L (136-145)
[2023-09-24 15:11] LABS: Protein, Urine (Random) 7.2 mg/dL (<11.9); Protein:Creat Ratio 56 mg/g CRE (0-200)
== END | disposition home or self-care (01) ==
PROVIDERS: Obstetrics & Gynecology; Referring Provider Nurse Practitioner Women's Health; Visit Provider Nurse Practitioner Women's Health
DX: O16.9 Unspecified maternal hypertension, unspecified trimester (principal); Z3A.00 Weeks of gestation of pregnancy not specified
CPT/HCPCS: 36415; 80053; 82570; 84156; 85025

== ENCOUNTER → 2023-10-24 | Outpatient (CLI) | payer OTHER, SELFPAY ==
[2023-10-24 10:14] LABS: Absolute Lymphocyte Count 2.06 X10^3/uL (0.83-4.51); Absolute Neutrophil Count 5.3 X10^3/uL (2.0-7.7); Basophil# 0.04 X10^3/uL; Basophil% 0.5 % (0-1); Eosinophil# 0.17 X10^3/uL; Eosinophils% 2.1 % (0-5); Hematocrit 31.5 % (37-47); Hemoglobin 9.9 g/dL (12.0-15.0); Lymphocyte # 2.06 X10^3/ul (0.83-4.51); Lymphocyte % 25.2 % (19-41); Mean Corp Hgb Conc 31.4 g/dL (32-36); Mean Corpuscular Hgb 25.1 pg (27.0-32.0); Mean Corpuscular Volume 79.9 fL (81-99); Mean Platelet Vol. 10.2 fl (6.2-12.0); Monocyte# 0.48 X10^3/uL; Monocyte% 5.9 % (0-10); NRBC Flagged by Analyzer 0 % (0-5); Neutrophil # 5.33 X10^3/uL (2.7-7.7); Platelet Count 141 K/mm3 (150-450); RBC Distribution Width CV 14.9 % (11.6-14.6); RBC Distribution Width SD 43.2 fl (35.1-43.9); Red Blood Count 3.94 M/mm3 (4.2-5.4); White Blood Count 8.2 K/mm3 (4.4-11.0)
[2023-10-24 10:34] LABS: Glucose Challenge Gest 1H 50g 90 mg/dL (70-140)
[2023-10-24 11:08] LABS: HIV - WCH Non-Reactive (Nonreactive); Syphilis Antibodies Non-reactive
== END | disposition home or self-care (01) ==
LOC: PAVLAB 09:55
PROVIDERS: Referring Provider Nurse Practitioner Women's Health; Visit Provider Nurse Practitioner Women's Health
DX: Z34.90 Encounter for supervision of normal pregnancy, unspecified, unspecified trimester (principal)
CPT/HCPCS: 36415; 82950; 85025; 86703; 86780

== ENCOUNTER → 2023-12-04 | Outpatient (CLI) | payer OTHER, SELFPAY ==
[2023-12-04 11:00] LABS: Absolute Lymphocyte Count 2.19 X10^3/uL (0.83-4.51); Absolute Neutrophil Count 5.9 X10^3/uL (2.0-7.7); Basophil# 0.05 X10^3/uL; Basophil% 0.6 % (0-1); Eosinophil# 0.19 X10^3/uL; Eosinophils% 2.1 % (0-5); Hemoglobin 11.5 g/dL (12.0-15.0); Lymphocyte # 2.19 X10^3/ul (0.83-4.51); Lymphocyte % 24.7 % (19-41); Mean Corp Hgb Conc 31.9 g/dL (32-36); Mean Corpuscular Volume 81.4 fL (81-99); Mean Platelet Vol. 10.3 fl (6.2-12.0); Monocyte# 0.43 X10^3/uL; Monocyte% 4.8 % (0-10); NRBC Flagged by Analyzer 0 % (0-5); Neutrophil # 5.94 X10^3/uL (2.7-7.7); Platelet Count 141 K/mm3 (150-450); RBC Distribution Width CV 17.9 % (11.6-14.6); RBC Distribution Width SD 52.6 fl (35.1-43.9); Red Blood Count 4.42 M/mm3 (4.2-5.4); White Blood Count 8.9 K/mm3 (4.4-11.0)
[2023-12-04 11:26] LABS: Ferritin 10 ng/mL (8-252); Iron 50 ug/dL (50-170); Iron Binding Capacity,Total 518 ug/dL (250-450)
[2023-12-04 11:29] LABS: Vitamin B12 229 pg/mL (211-911)
== END | disposition home or self-care (01) ==
LOC: PAVLAB 09:47
PROVIDERS: Referring Provider Obstetrics & Gynecology; Visit Provider Obstetrics & Gynecology
DX: O99.019 Anemia complicating pregnancy, unspecified trimester (principal); D69.6 Thrombocytopenia, unspecified
CPT/HCPCS: 36415; 82607; 82728; 83540; 83550; 85025

== ENCOUNTER → 2023-12-10 | Outpatient (CLI) | payer OTHER, SELFPAY ==
--- NOTE | 2023-12-10 13:01 | US_ITS ---
STUDY: SECOND AND THIRD TRIMESTER OBSTETRICAL ULTRASOUND REASON FOR EXAM: Female, 23 years old growth -- BMI 48 LMP: April 24, 2023. TECHNIQUE: Transabdominal TECHNICAL QUALITY: Adequate. PRIOR ULTRASOUND: None. FINDINGS: There is a single intrauterine fetus. The fetus is in an transverse lie with the head on the maternal left side. There is demonstrated cardiac activity with a heart rate of 152 bpm. There is a normal amniotic fluid volume. The largest amniotic fluid pocket measures 6.6 cm. The amniotic fluid index (AFTAB) is 18.3 cm. The placenta is anterior in location and is not low lying. There are Grade 2 placental changes. The cervical length was not measured due to the head position. The adnexal regions are not visualized. BIOMETRY: BPD: 8.68 cm: 35 weeks, 0 days HC: 31.93 cm: 36 weeks, 0 days AC: 29.66 cm: 33 weeks, 4 days FL: 6.26 cm: 32 weeks, 3 days CI: 78% FL/BPD: 72% FL/HC: FL/AC: 21% HC/AC: 1.08 age by current US: 34 weeks, 5 days. MALLORIE by current US: January 16, 2020. Estimated weight: 2235 grams, +/- 335 grams, 64 %. Age by LMP: 32 weeks, 6 days. MALLORIE by LMP: January 29, 2024. US/OB Limited With Biometrics IMPRESSION: Single live intrauterine gestation with a mean gestational age of 34 weeks and 5 days. Electronically Signed: Valeriy Groves MD at 8:46 EDT ,
== END | disposition home or self-care (01) ==
PROVIDERS: Referring Provider Obstetrics & Gynecology; Visit Provider Obstetrics & Gynecology
DX: O99.212 Obesity complicating pregnancy, second trimester (principal); Z3A.00 Weeks of gestation of pregnancy not specified
CPT/HCPCS: 76816

== ENCOUNTER 2023-12-24 11:25 | Outpatient (CLI) | payer OTHER, SELFPAY ==
[2023-12-24 12:36] VITALS: BP 120/88; PULSE 83; PULSE 98; O2SAT 97
[2023-12-24 12:40] VITALS: BMI 47.7
--- NOTE | 2023-12-27 08:55 | OB.TRI.PN ---
Progress Notes Date of Service: 12/24/23 Progress Note: Patient presents for triage evaluation secondary to threatened labor FHT: 140 Moderate variability reactive no decelerations category I tracing [place]: irregular Contractions Assessment and plan: threatened labor no cervicla change Reactive NST, reassuring maternal and status patient discharged to home to follow-up as scheduled. See problem list details for additional plan information. Charges/Coding Procedures Urinary/Genital [id number]: [id number] non-stress test Interp
== END 2023-12-24 13:45 | disposition home or self-care (01) ==
LOC: WPOUT 11:28 → WP 11:28
PROVIDERS: Referring Provider Obstetrics & Gynecology; Visit Provider Obstetrics & Gynecology
DX: O60.00 Preterm labor without delivery, unspecified trimester (principal); Z3A.00 Weeks of gestation of pregnancy not specified
CPT/HCPCS: 59025; 59050; 99221; G0378

== ENCOUNTER → 2023-12-31 | Outpatient (CLI) | payer OTHER, SELFPAY ==
--- NOTE | 2023-12-31 11:40 | US_ITS ---
STUDY: OBSTETRICAL ULTRASOUND - BIOPHYSICAL PROFILE REASON FOR EXAM: Female, 23 years old Failed NST LMP: Unknown. PRIOR ULTRASOUND: 12/10/2023 TECHNIQUE: Transabdominal TECHNICAL QUALITY: Adequate. FINDINGS: There is a single intrauterine fetus. The fetus is in a cephalic presentation. There is demonstrated cardiac activity with a heart rate of 132 bpm. There is increased amniotic fluid consistent with polyhydramnios. The largest amniotic fluid pocket measures 6.9 cm. The amniotic fluid index (AFTAB) is 22.6 cm. The placenta is anterior in location and is not low lying. There are Grade 2 placental changes. BIOPHYSICAL PROFILE: Breathing Movements (FBM): 2 Gross Body Movements (GBM): 2 Tone (FT): 2 Amniotic Fluid Volume (AFV): 2 TOTAL SCORE: US/Biophysical Prof W/O Non Stres IMPRESSION: Normal biophysical profile of 01/29. Electronically Signed: Arslan Leyva MD at 15:30 EDT ,
== END | disposition home or self-care (01) ==
LOC: OPUS 11:40
PROVIDERS: Referring Provider Nurse Practitioner Women's Health; Visit Provider Nurse Practitioner Women's Health
DX: O99.212 Obesity complicating pregnancy, second trimester (principal); Z3A.00 Weeks of gestation of pregnancy not specified
CPT/HCPCS: 76819

== ENCOUNTER → 2024-01-07 | Outpatient (CLI) | payer OTHER, SELFPAY ==
--- NOTE | 2024-01-07 11:12 | US_ITS ---
STUDY: OBSTETRICAL ULTRASOUND - BIOPHYSICAL PROFILE REASON FOR EXAM: Female, 23 years old wellbeing LMP: PRIOR ULTRASOUND: 12/31/2023 TECHNIQUE: Transabdominal TECHNICAL QUALITY: Adequate. FINDINGS: There is a single intrauterine fetus. The fetus is in a cephalic presentation. There is demonstrated cardiac activity with a heart rate of 133 bpm. There is a normal amniotic fluid volume. The largest amniotic fluid pocket measures 6.5 cm. The amniotic fluid index (AFTAB) is 17.6 cm. The placenta is anterior in location and is not low lying. There are Grade 2 placental changes. Age by LMP: weeks, days. MALLORIE by LMP: . age by prior US: 36 weeks, 6 days. MALLORIE by prior US: 01/29/2024. age by current US: weeks, days. MALLORIE by current US: . Gender: BIOPHYSICAL PROFILE: Breathing Movements (FBM): 2 Gross Body Movements (GBM): 2 Tone (FT): 2 Amniotic Fluid Volume (AFV): 2 TOTAL SCORE: 8 / 8 US/Biophysical Prof W/O Non Stres IMPRESSION: Normal biophysical profile of 01/29. Electronically Signed: Arslan Leyva MD at 10:55 EDT ,
--- NOTE | 2024-01-07 11:12 | US_ITS ---
STUDY: SECOND AND THIRD TRIMESTER OBSTETRICAL ULTRASOUND - LIMITED REASON FOR EXAM: Female, 23 years old growth LMP: PRIOR ULTRASOUND: 01/07/2024 TECHNIQUE: Transabdominal TECHNICAL QUALITY: Adequate. FINDINGS: There is a single intrauterine fetus. The fetus is in a cephalic presentation. There is demonstrated cardiac activity with a heart rate of 135 bpm. There is a normal amniotic fluid volume. The largest amniotic fluid pocket measures 4.9 cm. The amniotic fluid index (AFTAB) is 15.1 cm. The placenta is anterior in location and is not low lying. There are Grade 2 placental changes. The cervix measures cm in length. BIOMETRY: BPD: 9.4 cm: 38 weeks, 2 days HC: 34.4 cm: 39 weeks, 5 days AC: 33.2 cm: 37 weeks, 0 days FL: 6.8 cm: 35 weeks, 0 days Age by LMP: 36 weeks, 6 days. MALLORIE by LMP: 01/29/2024. age by prior US: weeks, days. MALLORIE by prior US: . age by current US: 37 weeks, 6 days. MALLORIE by current US: 01/22/2024. Estimated weight: 3059 grams, +/- 459 grams, 56 percentile. Gender: US/OB Limited With Biometrics IMPRESSION: Living intrauterine of 37 weeks 6 days as described above. Electronically Signed: Arslan Leyva MD at 10:53 EDT ,
== END | disposition home or self-care (01) ==
PROVIDERS: Referring Provider Obstetrics & Gynecology; Visit Provider Obstetrics & Gynecology
DX: O99.213 Obesity complicating pregnancy, third trimester (principal); Z3A.36 36 weeks gestation of pregnancy
CPT/HCPCS: 76816; 76819; 87081

== ENCOUNTER → 2024-01-14 | Outpatient (CLI) | payer OTHER, SELFPAY ==
--- NOTE | 2024-01-14 15:29 | US_ITS ---
STUDY: OBSTETRICAL ULTRASOUND - BIOPHYSICAL PROFILE REASON FOR EXAM: Female, 23 years old BPP LMP: PRIOR ULTRASOUND: OB ultrasound dated January 07, 2024 TECHNIQUE: Transabdominal TECHNICAL QUALITY: Adequate. FINDINGS: There is a single intrauterine fetus. The fetus is in a cephalic presentation. There is demonstrated cardiac activity with a heart rate of 130 bpm. There is a normal amniotic fluid volume. The largest amniotic fluid pocket measures 5.3 cm. The amniotic fluid index (AFTAB) is 18.13 cm. The placenta is anterior in location and is not low lying. There are Grade 2 placental changes. age by current US: 37 weeks, 6 days. MALLORIE by current US: January 29, 2024. BIOPHYSICAL PROFILE: Breathing Movements (FBM): 2 Gross Body Movements (GBM): 2 Tone (FT): 2 Amniotic Fluid Volume (AFV): 2 TOTAL SCORE: 8 / 8 US/Biophysical Prof W/O Non Stres IMPRESSION: Normal biophysical profile of 8/8. Electronically Signed: Ryland Dahl MD at 16:16 EDT ,
== END | disposition home or self-care (01) ==
LOC: US 15:27
PROVIDERS: Referring Provider Obstetrics & Gynecology; Visit Provider Obstetrics & Gynecology
DX: O99.212 Obesity complicating pregnancy, second trimester (principal); D69.3 Immune thrombocytopenic purpura; O16.1 Unspecified maternal hypertension, first trimester; O99.013 Anemia complicating pregnancy, third trimester; O09.93 Supervision of high risk pregnancy, unspecified, third trimester; Z3A.00 Weeks of gestation of pregnancy not specified; O99.113 Other diseases of the blood and blood-forming organs and certain disorders involving the immune mechanism complicating pregnancy, third trimester
CPT/HCPCS: 76819

== ENCOUNTER → 2024-01-23 | Outpatient (CLI) | payer OTHER, SELFPAY ==
--- NOTE | 2024-01-23 09:54 | US_ITS ---
STUDY: OBSTETRICAL ULTRASOUND - BIOPHYSICAL PROFILE REASON FOR EXAM: Female, 23 years old bPP LMP: April 24, 2023. PRIOR ULTRASOUND: Comparison is made with prior study dated January 14, 2024. TECHNIQUE: Transabdominal TECHNICAL QUALITY: Adequate. FINDINGS: There is a single intrauterine fetus. The fetus is in a cephalic presentation. There is demonstrated cardiac activity with a heart rate of 135 bpm. There is a normal amniotic fluid volume. The largest amniotic fluid pocket measures 6.0 cm. The amniotic fluid index (AFTAB) is 16.9 cm. The placenta is There are Grade 2 placental changes. Age by LMP: 39 weeks, 1 days. MALLORIE by LMP: January 29, 2024. BIOPHYSICAL PROFILE: Breathing Movements (FBM): 2 Gross Body Movements (GBM): 2 Tone (FT): 2 Amniotic Fluid Volume (AFV): 2 TOTAL SCORE: 8 / 8 US/Biophysical Prof W/O Non Stres IMPRESSION: Normal biophysical profile of 8/8. Electronically Signed: Valeriy Groves MD at 10:52 EDT ,
== END | disposition home or self-care (01) ==
PROVIDERS: Referring Provider Obstetrics & Gynecology; Visit Provider Obstetrics & Gynecology
DX: O99.213 Obesity complicating pregnancy, third trimester (principal); O99.113 Other diseases of the blood and blood-forming organs and certain disorders involving the immune mechanism complicating pregnancy, third trimester; D69.6 Thrombocytopenia, unspecified; O99.013 Anemia complicating pregnancy, third trimester; Z3A.00 Weeks of gestation of pregnancy not specified
CPT/HCPCS: 76819

== ENCOUNTER → 2024-01-27 | Outpatient (CLI) | payer OTHER, SELFPAY ==
[2024-01-27 12:18] LABS: Absolute Lymphocyte Count 2.27 X10^3/uL (0.83-4.51); Absolute Neutrophil Count 7.2 X10^3/uL (2.0-7.7); Basophil# 0.04 X10^3/uL; Basophil% 0.4 % (0-1); Eosinophil# 0.18 X10^3/uL; Eosinophils% 1.7 % (0-5); Hematocrit 38.1 % (37-47); Hemoglobin 12.4 g/dL (12.0-15.0); Lymphocyte # 2.27 X10^3/ul (0.83-4.51); Mean Corp Hgb Conc 32.5 g/dL (32-36); Mean Corpuscular Hgb 26.5 pg (27.0-32.0); Mean Corpuscular Volume 81.4 fL (81-99); Mean Platelet Vol. 11.3 fl (6.2-12.0); Monocyte# 0.46 X10^3/uL; Monocyte% 4.5 % (0-10); NRBC Flagged by Analyzer 0 % (0-5); Neutrophil % 69.7 % (47-70); Platelet Count 153 K/mm3 (150-450); RBC Distribution Width CV 15.5 % (11.6-14.6); RBC Distribution Width SD 45.6 fl (35.1-43.9); Red Blood Count 4.68 M/mm3 (4.2-5.4); White Blood Count 10.3 K/mm3 (4.4-11.0)
[2024-01-27 12:29] LABS: Protein, Urine (Random) 8.7 mg/dL (<11.9); Protein:Creat Ratio 242 mg/g CRE (0-200)
[2024-01-27 12:51] LABS: ALB/GLOB Ratio 0.6 RATIO (0.9-2.4); AST(SGOT) 16 U/L (15-37); Alanine Aminotransfer ALT/SGPT 14 U/L (13-56); Albumin, Serum 2.4 g/dL (3.2-5.0); Alkaline Phosphatase 162 U/L (45-117); Anion Gap 10 (5-15); BUN 4 mg/dL (7-18); BUN/Creat Ratio 7.1 RATIO (10-20); Calcium,Total 9.1 mg/dL (8.5-10.1); Chloride 109 mmol/L (98-107); Creatinine, Serum 0.56 mg/dL (0.55-1.02); EST Glomerular Filtration Rate 140 mL/min (>60); Est Glom Filt Rate - Afr Amer 169 mL/min (>60); Glucose 101 mg/dL (74-106); Potassium 3.6 mmol/L (3.5-5.1); Protein, Total 6.4 g/dL (6.4-8.2); Sodium Level 140 mmol/L (136-145); Uric Acid 4.5 mg/dL (2.6-6.0)
== END | disposition home or self-care (01) ==
LOC: LAB 11:10
PROVIDERS: Referring Provider Advanced Practice Midwife; Visit Provider Advanced Practice Midwife
DX: O99.119 Other diseases of the blood and blood-forming organs and certain disorders involving the immune mechanism complicating pregnancy, unspecified trimester (principal); D69.6 Thrombocytopenia, unspecified; Z3A.00 Weeks of gestation of pregnancy not specified
CPT/HCPCS: 36415; 80053; 82570; 84156; 84550; 85025

== ENCOUNTER 2024-01-28 08:14 | Inpatient (IN) | payer OTHER, SELFPAY ==
[2024-01-28] VITALS (46 sets, daily range): BP systolic 109–163; BP diastolic 55–89; PULSE 80–102; RESP 16; TEMP 36.2–37.2; O2SAT 90–100; BMI 49.1
--- NOTE | 2024-01-28 08:38 | HP.PCM.OB_ITS ---
HPI - General General Date of Admission: 01/28/24 HPI Narrative RODGER SOTO, is a 23 y/o @ 39 weeks 6 days who presents to L&D with painful contractions. She was noted to be 3 cm dilated 70% and intact upon arrival. She is currently standing at the bedside breathing through contractions Maternal Data Information MALLORIE Calculator Estimated Delivery Date Method Current WG Current Estimate 01/29/24 LMP (Certain) 39w 6d PFSH PFSH Medical History (Updated 01/28/24 @ 06:54 by Noy Galvan) Infertility Asthma Depression Anxiety Vaginal delivery PCOS (polycystic ovarian syndrome) Home Medications ?Medication ?Instructions ?Recorded ?Last Taken ?Type PNV 153-FA 400 mcg-om3 35 mg-dha 2 tab PO DAILY 06/11/23 Unknown History 25 mg-epa 5 mg-fish oil chew tablet promethazine 12.5 mg tablet 12.5 mg PO Q6H PRN nausea and 08/27/23 Unknown Rx vomiting, headache #30 tabs ferrous sulfate 325 mg (65 mg 325 mg PO DAILY 01/28/24 Unknown History iron) tablet (Feosol) Allergy/AdvReac Type Severity Reaction Status Date / Time No Known Allergies Allergy Verified 01/28/24 05:33 Social History adopted: No household members: spouse and children number of children: 1 current occupational status: employed 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 current occupational exposures/hazards: No pets and animals: Yes pets and animals: dog(s) history of recent travel: No sexually active: Yes Smoking Status: Former smoker Tobacco: How many years used: 3 Electronic Cigarette Use: with nicotine alcohol intake: never substance use type: does not use well-balanced diet: daily or most days caffeine: Yes Type: carbonated beverages Number of servings: 1 eating out: 1-3 times/week during the past year weight has: increased > 10 lbs what type of physical activity do you participate in: none zev/jehovah's witness: None seatbelt use: always do you feel safe at home: Yes 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 Date Name GA/Weeks Outcome Route Bth Weight Infant Gen Labor Lgth Anesthesia Del Locatn Provider FOB 12/12/22 Coltur 39 live - full term 9#4oz Male 23 HR epidu ral [facility] Hilary Floyd Delivery Date: 12/12/22 Last Updated by: Sunitha Moulton elective IOL, LGA Visit Details Expected Delivery Route/Plan Labor Preferences- CB/BF classes: [] labor support person: [] labor intervention preferences: [] pain management options preferred: [] cut cord/dad catch: [] : [] PP control planned: [] discussed possible routes of delivery and associated risks: [] special requests: [] Plans Covid status: [] Flu vaccine: [] Tdap vaccine: [] Rhogam: [] LARC form signed: [] Problem list reviewed and updated with the most current plan of care details and appropriate orders placed. Relevant counseling for the gestational age provided. Continue routine care and follow up unless otherwise noted in visit notes/problem list details OB Flowsheet Initial Weight: Not Recorded Date -?-?-?-?-?-?-?-?-?-?-?-?- EGA Weight BP Urine Prot -?-?-?-?-?-?-?-?-?-?-?-?- Glucose FHR FuHt Pres Dilation -?-?-?-?-?-?-?-?-?-?-?-?- Effaced St Visit Note 06/28/23 -?-?-?-?-?-?-?-?-?-?-?-?- 9w 2d 263 lb 6 oz 136/80 -?-?-?-?-?-?-?-?-?-?-?-?- 171 -?-?-?-?-?-?-?-?-?-?-?-?- KW- CRL cons wit h dates. Discussed NIPT/carrier considering. first baby 6 months ago. KW- CRL cons with dates. Dis cussed NIPT/carrier considering. first baby 6 months ago this was unexpected but ok with . 07/25/23 -?-?-?-?-?-?-?-?-?-?-?-?- 13w 1d 267 lb 2 oz 124/78 Nega tive -?-?-?-?-?-?-?-?-?-?-?-?- Negative 150 -?-?-?-?-?-?-?-?-?-?-?-?- SM- no vb crampi ng 08/27/23 -?-?-?-?-?-?-?-?-?-?-?-?- 17w 6d 274 lb 4 oz 136/84 Nega tive -?-?-?-?-?-?-?-?-?-?-?-?- Negative 147 -?-?-?-?-?-?-?-?-?-?-?-?- TERRI pt and jordyn tillman express to me today that they are very unhappy with our practice. They feel they have been dismissed of their concerns. Concerns include high blood pressure at home, concern for diabetes, and headaches. Plan is to try phenegan + tylenol and collect baseline PIH labs now. we discussed that her a1c level was 4.8 and we will certainly perform a gct at 24-28 weeks. plan is for her to bring in her bp cuff from home to match our readings and to call if develops bp's >160's/90's. After our very long discussion she went up front and still filled out transfer records to [facility]. 09/24/23 -?-?-?-?-?-?-?-?-?-?-?-?- 21w 6d 273 lb 2 oz 126/78 Nega tive -?-?-?-?-?-?-?-?-?-?-?-?- Negative 156 -?-?-?-?-?-?-?-?-?-?-?-?- 10/24/23 -?-?-?-?-?-?-?-?-?-?-?-?- 26w 1d 278 lb 4 oz 130/84 Nega tive -?-?-?-?-?-?-?-?-?-?-?-?- Negative 150 -?-?-?-?-?-?-?-?-?-?-?-?- KW- no vb/crampi ng. good fm. passed glucose. to start PO iron-anemia. repeat CBC in 4 weeks 11/20/23 -?-?-?-?-?-?-?-?-?-?-?-?- 30w 0d 281 lb 8 oz 138/82 Nega tive -?-?-?-?-?-?-?-?-?-?-?-?- Negative 146 30 -?-?-?-?-?-?-?-?-?-?-?-?- JV- no compliant today. LARC signed. JV- no compliant today. LARC signed. rpt cbc and iron studies nxt visit. 12/04/23 -?-?-?-?-?-?-?-?-?-?-?-?- 32w 0d 277 lb 129/79 Negative -?-?-?-?-?-?-?-?-?-?-?-?- Negative 143 40 -?-?-?-?-?-?-?-?-?-?-?-?- JV- growth scan needed. rpt labs needed. pt still non-compliant with iron. start NSTs at 34 weeks weekly for obesity . 12/19/23 -?-?-?-?-?-?-?-?-?-?-?-?- 34w 1d 281 lb 131/85 Negative -?-?-?-?-?-?-?-?-?-?-?-?- Negative 125 -?-?-?-?-?-?-?-?-?-?-?-?- JV- 64th% last s can, hg 11 and plts stable at 141 JV- 64th% last scan, hg 11 a nd plts stable at 141. NST reactive. plan growth at 36 weeks 12/24/23 -?-?-?-?-?-?-?-?-?-?-?-?- 34w 6d 279 lb 2 oz 129/81 Nega tive -?-?-?-?-?-?-?-?-?-?-?-?- Negative 140 -?-?-?-?-?-?-?-?-?-?-?-?- MH-Reactive NST although unable to get 20 min strip due to obesity. Noted CTX Q2-4 min, patient is feeling them. To for further monitoring per 12/31/23 -?-?-?-?-?-?-?-?-?-?-?-?- 35w 6d 280 lb 8 oz 132/70 Nega tive -?-?-?-?-?-?-?-?-?-?-?-?- Negative 135 -?-?-?-?-?-?-?-?-?-?-?-?- MH-No VB,LOF. Go od FM. Attempted NST but unable to record FHT due to body habitus. Will get BPP. 01/07/24 -?-?-?-?-?-?-?-?-?-?-?-?- 36w 6d 282 lb 4 oz 140/90 Nega tive -?-?-?-?-?-?-?-?-?-?-?-?- Negative 140 0 -?-?-?-?-?-?-?-?-?-?-?-?- KW- no vb/lof/ct x. good fm. BPP and Growth US after appt. GBS today 01/14/24 -?-?-?-?-?-?-?-?-?-?-?-?- 37w 6d 283 lb 6 oz 130/89 -?-?-?-?-?-?-?-?-?-?-?-?- 145 44 -?-?-?-?-?-?-?-?-?-?-?-?- SM- no vb lof go od fm no regular ctx bpp today. discussed possible IOL for obesity, history of successful IOL wiht last . will review with other provider. 01/22/24 -?-?-?-?-?-?-?-?-?-?-?-?- 39w 0d 283 lb 6 oz 131/85 Nega tive -?-?-?-?-?-?-?-?-?-?-?-?- Negative 130 41 -?-?-?-?-?-?-?-?-?-?-?-?- JV- no lof, vagi nal bleeding, or dec fm. nst reactive has bpp tomorrow. only bpp's needed going forward. can not do elective inductions now but will need to consider delivery between 40-41 weeks for morbid obesity. 01/27/24 -?-?-?-?-?-?-?-?-?-?-?-?- 39w 5d 287 lb 4 oz 139/90 Nega tive -?-?-?-?-?-?-?-?-?-?-?-?- Negative 130 3 -?-?-?-?-?-?-?-?-?-?-?-?- 70 -2 KW- no vb/ lof/ctx. good fm. membrane sweep. KW- no vb/lof/ctx. good fm. membrane sweep. IOL for later this week. ROS Constitutional Constitutional: Denies change in weight, fatigue, fever(s), headache(s), poor appetite or weakness Eyes Eyes: Denies blurry vision, change in vision, seeing flashes or spots in vision ENT HEENT: Denies dizziness, headache(s), loss taste/smell or sore throat Cardiovascular Cardiovascular: Denies chest pain, dizziness, dyspnea, irregular heart rhythm, leg edema, palpitations, rapid heart rate or vomiting Respiratory/Chest Respiratory/Chest: Denies chest tightness, cough, dyspnea or breast pain Gastrointestinal Gastrointestinal: Denies abdominal pain, anorexia, constipation, cramping, diar rubio, hemorrhoids, vomiting or weight changes Genitourinary Genitourinary: Denies dysuria, flank pain, genital lesions, genital pain, urinary frequency or urinary urgency Musculoskeletal Musculoskeletal: Denies back pain, difficulty walking, joint pain, limited range of motion, muscle cramps or numbness Integumentary Integumentary: Denies lesions or unusual bruising Neurologic Neurologic: Denies abnormal movements, abnormal speech, dizziness, numbness, seizure-like activity or syncope Psychiatric Psychiatric: Denies anxiety, behavioral changes, change in appetite, change in libido, cognitive impairment, confusion, depression, difficulty concentrating, hallucinations or suicidal thoughts Endocrine Endocrinology: Denies excessive sweating, polydipsia or polyuria Hematologic/Lymphatic Hematologic/Lymphatic: Denies easy bleeding, easy bruising or lymphadenopathy Allergic/Immunologic Allergic/Immunologic: Denies itchy eyes, lip swelling, seasonal rhinorrhea, rhinitis, throat swelling, tongue swelling, eczemia, wheezing or asthma Vital Signs Vital Signs Vital Signs: 01/28/24 05:13 01/28/24 05:13 01/28/24 05:13 Temperature Temperature Source Pulse Rate 82 Respiratory Rate 16 Blood Pressure 132/71 H BP Systolic 132 BP Diastolic 71 Pulse Ox 01/28/24 05:13 01/28/24 05:14 01/28/24 05:14 Temperature Temperature Source Temporal Pulse Rate Respiratory Rate 16 Blood Pressure BP Systolic BP Diastolic Pulse Ox 98 01/28/24 05:14 01/28/24 06:13 01/28/24 06:13 Temperature 98.2 F Temperature Source Pulse Rate 86 Respiratory Rate Blood Pressure 139/77 H BP Systolic 139 BP Diastolic 77 Pulse Ox 01/28/24 07:41 01/28/24 07:41 01/28/24 07:41 Temperature Temperature Source Temporal Pulse Rate 86 Respiratory Rate Blood Pressure 143/85 H BP Systolic 143 BP Diastolic 85 Pulse Ox 01/28/24 07:41 01/28/24 07:41 Temperature 97.2 F L Temperature Source Pulse Rate Respiratory Rate 16 Blood Pressure BP Systolic BP Diastolic Pulse Ox Weight Weight: 286 lb 4 oz Body Mass Index (BMI) 49.1 Physical Exam Const alert, oriented x3, no apparent distress and healthy appearing General Appearance: cooperative; Negative for anxious HEENT normocephalic Face and Sinus: normal facial exam Eyes EOMs intact bilaterally and no scleral icterus General Eye: normal appearance of both eyes Neck full ROM and supple Lymph Lymphatic: no lymphadenopathy noted Chest Chest: abnormal inspection of the chest Resp normal respiratory effort Effort and Inspection: able to speak in complete sentences Cardio regular rate GI soft to palpation and non-tender Inspection: gravid Palpation: soft; Negative for tender external exam normal Amniotic Fluid: ROM+plus Back/Spine no CVA tenderness Extremity normal to inspection, full ROM and no clubbing, cyanosis or edema General Extremity: Negative for calf tenderness or edema Skin Lesions: no lesions Rashes: no rashes Psych mental status grossly normal Labs Labs Labs: Blood Type A POSITIVE Antibody Screen NEGATIVE Hct 38.1 % (37-47) Hgb 12.4 g/dL (12.0-15.0) Obstetrics Ultrasound Syphilis Total Ab Non-reactive VZV IgG Antibody 154 index (Immune >165) L Rubella IgG Antibody Reactive (Nonreactive) Hep Bs Antigen Non-Reactive (Nonreactive) Hepatitis C Antibody Non-Reactive (Nonreactive) Chlamydia DNA (RE) Negative (Negative) N.gonorrhoeae DNA (RE) Negative (Negative) HIV 1&2 Antibody Non-Reactive (Nonreactive) Glucose 1 Hr 50 gm 90 mg/dL (70-140) Rhogam given: No Assessment & Plan (1) Thrombocytopenia affecting : COMMENT: recheck at 30 wk- plt 141 at 32 weeks; rpt 36 wk (2) Anemia affecting : QUALIFIERS: Trimester: third trimester Qualified Code(s): O99.013 - Anemia complicating , third trimester COMMENT: start PO iron-Repeat CBC at 30 weeks (3) Obesity affecting : QUALIFIERS: Trimester: second trimester Obesity type affecting : unspecified obesity Qualified Code(s): O99.212 - Obesity complicating , second trimester COMMENT: encouarged healthy weight gain, bmi 45 recommend third trimester testing.- start nsts 34 weeks . Monthly growth scans. (4) History of PCOS: (5) Depression: QUALIFIERS: Depression Type: unspecified Qualified Code(s): F32.A - Depression, unspecified COMMENT: stable (6) Supervision of high-risk : QUALIFIERS: Trimester: third trimester Qualified Code(s): O09.93 - Supervision of high risk , unspecified, third trimester COMMENT: PRR , MALLORIE 01/29/24 Girl, PC Coltur, [place] (7) : QUALIFIERS: Weeks of gestation: 39 weeks Qualified Code(s): Z3A.39 - 39 weeks gestation of COMMENT: Neg GBS. declined genetic & carrier testing PLAN: Plan Patient presents IAL, Cervix now 480/-2 with bulginh membranes. plan expectant management for , pitocin/AROM PRN if needed. Pain management: plans epidural. GBS neg. Management of any complications: obesity bp mildly elevated- will order PIH labs. pt has known gestational thrombocytopenia. I have reviewed the [facility] and made any clinically relevant updates.
[2024-01-28] MEDS: Lactated Ringers 1,000 ML 50 ML IV (08:45)
[2024-01-28] MEDS: Lactated Ringers 1,000 ML 999 ML IV (08:46)
[2024-01-28 09:03] LABS: Absolute Lymphocyte Count 2.21 X10^3/uL (0.83-4.51); Absolute Neutrophil Count 9.3 X10^3/uL (2.0-7.7); Basophil# 0.05 X10^3/uL; Basophil% 0.4 % (0-1); Eosinophil# 0.16 X10^3/uL; Eosinophils% 1.3 % (0-5); Hematocrit 37.6 % (37-47); Hemoglobin 12.4 g/dL (12.0-15.0); Lymphocyte # 2.21 X10^3/ul (0.83-4.51); Lymphocyte % 17.9 % (19-41); Mean Corpuscular Hgb 26.7 pg (27.0-32.0); Mean Corpuscular Volume 80.9 fL (81-99); Mean Platelet Vol. 11.4 fl (6.2-12.0); Monocyte# 0.46 X10^3/uL; Monocyte% 3.7 % (0-10); NRBC Flagged by Analyzer 0 % (0-5); Neutrophil # 9.31 X10^3/uL (2.7-7.7); Neutrophil % 75.5 % (47-70); Platelet Count 169 K/mm3 (150-450); RBC Distribution Width CV 15.6 % (11.6-14.6); RBC Distribution Width SD 44.6 fl (35.1-43.9); Red Blood Count 4.65 M/mm3 (4.2-5.4); White Blood Count 12.3 K/mm3 (4.4-11.0)
[2024-01-28 09:36] LABS: ALB/GLOB Ratio 0.7 RATIO (0.9-2.4); AST(SGOT) 17 U/L (15-37); Alanine Aminotransfer ALT/SGPT 15 U/L (13-56); Albumin, Serum 2.5 g/dL (3.2-5.0); Alkaline Phosphatase 163 U/L (45-117); Anion Gap 9 (5-15); BUN 4 mg/dL (7-18); BUN/Creat Ratio 8.5 RATIO (10-20); Calcium,Total 8.8 mg/dL (8.5-10.1); Chloride 110 mmol/L (98-107); Creatinine, Serum 0.47 mg/dL (0.55-1.02); EST Glomerular Filtration Rate 173 mL/min (>60); Est Glom Filt Rate - Afr Amer 209 mL/min (>60); Estimated Creatinine Clearance 246.96 ml/min; Globulin 3.6 g/dL (2.2-4.2); Glucose 89 mg/dL (74-106); Potassium 3.9 mmol/L (3.5-5.1); Protein, Total 6.1 g/dL (6.4-8.2); Sodium Level 140 mmol/L (136-145)
[2024-01-28] MEDS: fentaNYL-bupivacaine (epidural) 100 ML BAG EPIDURAL ×2 (09:37→14:09)
[2024-01-28 09:39] LABS: Syphilis Antibodies Non-reactive
[2024-01-28] MEDS: LACTATED RINGERS 500 ML 999 ML IV (13:40)
[2024-01-28] MEDS: Amnioinfusion- 0.9% NS 1,000 ML IV.SOLN. 1000 ML INTRA-UTER (14:05)
[2024-01-28] MEDS: Oxytocin 15 Units/NS 250ml 15 UNITS/250 ML IV.SOLN 334 UNITS IV (15:01)
[2024-01-28] MEDS: Methylergonovine 0.2 MG/ML Ampul IM (15:05)
--- NOTE | 2024-01-28 15:15 | OP.PCM_ITS ---
Assessment & Plan (1) Thrombocytopenia affecting : COMMENT: recheck at 30 wk- plt 141 at 32 weeks; rpt 36 wk (2) Anemia affecting : QUALIFIERS: Trimester: third trimester Qualified Code(s): O99.013 - Anemia complicating , third trimester COMMENT: start PO iron-Repeat CBC at 30 weeks (3) Obesity affecting : QUALIFIERS: Obesity type affecting : unspecified obesity Trimester: second trimester Qualified Code(s): O99.212 - Obesity complicating , second trimester COMMENT: encouarged healthy weight gain, bmi 45 recommend third trimester testing.- start nsts 34 weeks . Monthly growth scans. (4) History of PCOS: (5) Depression: QUALIFIERS: Depression Type: unspecified Qualified Code(s): F32.A - Depression, unspecified COMMENT: stable (6) Supervision of high-risk : QUALIFIERS: Trimester: third trimester Qualified Code(s): O09.93 - Supervision of high risk , unspecified, third trimester COMMENT: PRR , MALLORIE 01/29/24 Girl, PC Coltur, [place] (7) : QUALIFIERS: Weeks of gestation: 39 weeks Qualified Code(s): Z3A.39 - 39 weeks gestation of COMMENT: Neg GBS. declined genetic & carrier testing Maternal Data Information MALLORIE Calculator Estimated Delivery Date Method Current WG Current Estimate 01/29/24 LMP (Certain) 39w 6d Final MALLORIE: 01/29/24 Final MALLORIE Source: LMP Gestational age: 39 weeks 6 days Vaginal Delivery Operative Information Date of Procedure: 01/28/24 Pre-Operative Diagnosis: @ 39 weeks , active labor, gestational thrombocytopenia Post-Operative Diagnosis: @ 39 weeks , active labor, gestational th rombocytopenia Surgery / Procedure Performed: Spontaneous Vaginal Delivery Type of Anesthesia: Epidural Drain: Rasmussen to straight drain Estimated Blood Loss: 500cc Findings Description of Procedure: Patient began pushing and delivered the head in the GRUPO presentation. The head was delivered atraumatically. A thight nuchal cord was present. The anterior and posterior shoulders delivered without complication followed by the rest of the infant. The cord was slipped around the waste as the infant delivered through it and the infant was placed on the maternal abdomen. Delayed cord clamping was employed for approximately 60 seconds. Cord was clamped and cut and gentle traction was applied to the cord and the placenta delivered spontaneously immediately following it was noted to be intact with three-vessel cord. The perineum and vagina were inspected and noted to be intact. EBL was 100 cc. Patient and tolerated delivery well. baby girl nate Presentation: Vertex Amniotic Membrane Rupture Type: Spontaneous Amniotic Fluid Description: Clear Placental Delivery Description: Spontaneous Placenta Disposition: [facility] Cord Vessel Description: 3 Vessels Cord Entanglement: Around neck x 1, tight Nuchal Cord Compression: Without compression Infant A Gender: Female (1 minute): 9 (5 minute): 9 Delayed Cord Clamping: Yes Post Vaginal Delivery Medications Given After Delivery: IV Pitocin and IM Methergin Episiotomy Description: None Laceration: None Complication Complications: None Multi Select Codes Urinary/Genital Urinary/Genital CPT Codes: 39310 Vaginal Delivery [facility]
--- NOTE | 2024-01-28 15:24 | DCINST_ITS ---
Discharge Instructions Diet Discharge Diet: No restrictions Activity Discharge Activity: Return to Normal Activity, May Not Drive (while taking narcotic pain medications.) and May Shower May resume sexual activity in: 4-6 weeks Dressing / Incision Call your doctor if your incision/area has: Continuous Slow Oozing, Sudden Increased Bleeding, Increased Pain/ Swelling, Increased Redness and Foul Smelling Discharge Follow Up Care Please Follow Up With: Bianca Joseph, When: Call [phone] to make an appointment with your doctor in 6 weeks. If you had elevated blood pressure or 4th degree laceration, you will need to be seen in 2 weeks. Test Results: Test results from this visit will be discussed in further detail at your follow- up appointment, if applicable. Discharge Plan Admission Admit Date/Time: 01/28/24 08:14 Attending Provider: Bianca Joseph Primary Care Provider: Care PhysicianJosefa Primary Discharge Orders/Prescriptions Prescriptions: No Action PNV no.[id number] 400 mcg-35 mg- 25 mg-5 mg tablet,chewable 2 tab PO DAILY promethazine 12.5 mg tablet 12.5 mg PO Q6H PRN (Reason: nausea and vomiting, headache) Qty: 30 3RF ferrous sulfate [Feosol] 325 mg (65 mg iron) tablet 325 mg PO DAILY Referrals / Follow Up: Care Physician,No Primary [Primary Care Provider] -
[2024-01-28] MEDS: Oxytocin 15 Units/NS 250ml 15 UNITS/250 ML IV.SOLN 83 UNITS IV (15:32)
[2024-01-28] MEDS: Ibuprofen 600 MG Tablet PO (16:18)
[2024-01-29 04:00] VITALS: BP 144/81; PULSE 97; RESP 18; O2SAT 98
[2024-01-29 07:58] VITALS: BP 126/81; PULSE 100; RESP 16; TEMP 36.6; O2SAT 98
--- NOTE | 2024-01-29 08:08 | PCM.PN.OB ---
Subjective Subjective Patient doing well without complaints. Tolerating PO. Ambulating and voiding without difficulty. Feeding well. Denies chest pain, shortness of breath, calf pain/swelling, fevers, chills, lightheadedness. Objective Data Objective Data Vital Signs: Vital Signs Temp Pulse Resp BP Pulse Ox O2 Del Method 97.9 F 100 16 126/81 H 98 Room Air 01/29/24 07:58 01/29/24 07:58 01/29/24 07:58 01/29/24 07:58 01/29/24 07:58 01/29/24 07:58 Oxygen Delivery Method Room Air Weight: 286 lb 4 oz Body Mass Index (BMI) 49.1 Intake & Output: Intake and Output for Last 24 Hours 01/27/24 01/28/24 01/29/24 23:59 23:59 23:59 Intake Total 2850.07 / 2850.07 Output Total 2200 / 2200 Balance 650.07 / 650.07 Lab / Micro Data 01/28/24 08:40 01/28/24 08:40 Labs: Laboratory Results - last 24 hr 01/28/24 08:40: WBC 12.3 H, RBC 4.65, Hgb 12.4, Hct 37.6, MCV 80.9 L, MCH 26.7 L, MCHC 33.0, RDW Std Deviation 44.6 H, RDW Coeff of [place] 15.6 H, Plt Count 169, MPV 11.4, Immature Gran % (Auto) 1.200 H, Neut % (Auto) 75.5 H, Lymph % (Auto) 17.9 L, [place] % (Auto) 3.7, Eos % (Auto) 1.3, Baso % (Auto) 0.4, Absolute Neuts (auto) 9.3 H, Absolute Lymphs (auto) 2.21, Nucleated RBC % 0, Sodium 140, Potassium 3.9, Chloride 110 H, Carbon Dioxide 21.0, Anion Gap 9, BUN 4 L, Creatinine 0.47 L, Estim Creat Clear Calc 246.96, Est GFR (MDRD) Af Amer 209, Est GFR (MDRD) Non-Af 173, BUN/Creatinine Ratio 8.5 L, Glucose 89, Calcium 8.8, Total Bilirubin 0.30, AST 17, ALT 15, Alkaline Phosphatase 163 H, Total Protein 6.1 L, Albumin 2.5 L, Globulin 3.6, Albumin/Globulin Ratio 0.7 L, Syphilis Total Ab Non-reactive, Blood Type A POSITIVE, Antibody Screen NEGATIVE Physical Exam Const alert and oriented x3 HEENT normocephalic Eyes PERRL Neck full ROM Resp normal respiratory effort GI soft to palpation GI Narrative: FF below U Assessment & Plan (1) Spontaneous vaginal delivery: COMMENT: JV Girl [place] PLAN: Plan s/p PPD # 1 1. routine post delivery care 2. bottle feeding- support given 3. rh positive 4. rubella immune 5. home today
[2024-01-29 12:18] VITALS: BP 128/80; PULSE 96; RESP 18; TEMP 36.8; O2SAT 96
[2024-01-29 15:56] LABS: Absolute Lymphocyte Count 2.85 X10^3/uL (0.83-4.51); Absolute Neutrophil Count 7.4 X10^3/uL (2.0-7.7); Basophil# 0.03 X10^3/uL; Basophil% 0.3 % (0-1); Eosinophil# 0.18 X10^3/uL; Eosinophils% 1.6 % (0-5); Hematocrit 35.5 % (37-47); Hemoglobin 11.5 g/dL (12.0-15.0); Lymphocyte # 2.85 X10^3/ul (0.83-4.51); Lymphocyte % 25.7 % (19-41); Mean Corp Hgb Conc 32.4 g/dL (32-36); Mean Corpuscular Hgb 26.6 pg (27.0-32.0); Mean Corpuscular Volume 82.2 fL (81-99); Mean Platelet Vol. 11.1 fl (6.2-12.0); Monocyte# 0.54 X10^3/uL; Monocyte% 4.9 % (0-10); NRBC Flagged by Analyzer 0 % (0-5); Neutrophil # 7.44 X10^3/uL (2.7-7.7); Neutrophil % 66.9 % (47-70); Platelet Count 168 K/mm3 (150-450); RBC Distribution Width CV 15.6 % (11.6-14.6); RBC Distribution Width SD 46.6 fl (35.1-43.9); Red Blood Count 4.32 M/mm3 (4.2-5.4); White Blood Count 11.1 K/mm3 (4.4-11.0)
[2024-01-29 16:03] VITALS: BP 127/90; PULSE 81; RESP 18; TEMP 36.9; O2SAT 97
== END 2024-01-29 16:55 | disposition home or self-care (01) | DRG 807 ==
LOC: WPOUT 08:26 → WP 08:26
PROVIDERS: Admitting Provider Obstetrics & Gynecology; Referring Provider Obstetrics & Gynecology; Visit Provider Obstetrics & Gynecology
DX: O99.12 Other diseases of the blood and blood-forming organs and certain disorders involving the immune mechanism complicating childbirth (principal); Z37.0 Single live birth; D69.6 Thrombocytopenia, unspecified; F32.A Depression, unspecified; O99.214 Obesity complicating childbirth; O99.344 Other mental disorders complicating childbirth; Z87.891 Personal history of nicotine dependence; Z3A.39 39 weeks gestation of pregnancy; Z87.42 Personal history of other diseases of the female genital tract; O99.02 Anemia complicating childbirth; O69.81X0 Labor and delivery complicated by cord around neck, without compression, not applicable or unspecified
CPT/HCPCS: 59050; 80053; 85025; 86780; 86850; 86900; 86901; 99221; J7030; J7120; G0378